=== PATIENT | female | born 1955 | race Caucasian/White ===

== ENCOUNTER → 2019-02-27 14:17 | Outpatient (CLI) | payer SELFPAY ==
[2016-04-30 18:56] VITALS: BMI 44.4
[2019-02-27 15:56] LABS: Hemoglobin A1c 5.2 % (4.2-6.3)
== END ==
PROVIDERS: Family Provider Physician Assistant; PCP Physician Assistant; Referring Provider Podiatrist Foot & Ankle Surgery; Visit Provider Podiatrist Foot & Ankle Surgery
DX: M79.2 Neuralgia and neuritis, unspecified (principal)
CPT/HCPCS: 36415; 83036

== ENCOUNTER → 2019-03-06 11:03 | Outpatient (CLI) | payer SELFPAY ==
[2016-04-30 18:56] VITALS: BMI 44.4
--- NOTE | 2019-03-06 11:11 | ART_ITS ---
Reason For Study: Circulatory system problems Procedure A bilateral lower extremity continuous wave Doppler with analog waveform analysis,segmental pressures,and ankle brachial indexes without exercise. Left Segmental Pressures Left brachial= 146mmHg. Left posterior tibial artery = 178mmHg. Left dorsalis pedis artery = 157mmHg. Left digit = 126 mmHg. Right Segmental Pressures Right brachial= 140mmHg. Right posterior tibial artery = 177mmHg. Right dorsalis pedis artery = 176mmHg. Right digit = 113 mmHg. Indices The right ankle brachial index by the posterior tibial artery is 1.21. The right ankle brachial index by the dorsalis pedis is 1.21. The right digital-brachial index is 0.77. The left ankle brachial index by the posterior tibial artery is 1.22. The left ankle brachial index by the dorsalis pedis is 1.08. The left digital-brachial index is 0.86. Interpretation Summary Triphasic Doppler waveforms are noted at ankle level bilaterally. Pulse-volume recordings appear satisfactory bilaterally. Resting ankle-brachial indices are normal bilaterally. Digital-brachial indices are normal bilaterally. There is no evidence of significant arterial occlusive disease in the lower extremities bilaterally. Ordering Physician: Zbigniew Muñoz Referring Physician: Zbigniew Muñoz Performed By: Dory Remy RDCS/RVT
== END ==
PROVIDERS: Referring Provider Podiatrist Foot & Ankle Surgery; Visit Provider Podiatrist Foot & Ankle Surgery
DX: R09.89 Other specified symptoms and signs involving the circulatory and respiratory systems (principal)
CPT/HCPCS: 93923

== ENCOUNTER 2020-12-29 13:15 | Outpatient (RCR) | payer SELFPAY ==
[2020-12-08 08:27] VITALS: BP 127/60; PULSE 68; RESP 16; TEMP 36.1
--- NOTE | 2020-12-08 11:54 | HP.PCM_ITS ---
History of Present Illness Date of Service: 12/08/20 Chief Complaint: Venous leg ulcer right lower extremity with cellulitis History of Wound: This is a 65-year-old female who presents to the wound healing center today with complaint of a nonhealing venous leg ulcer on her right lower extremity with also cellulitis. She has a past medical history significant for seizure disorder, and venous insufficiency. The patient states that her issues initially began in September 2020 where she developed cellulitis to her right lower extremity. Shortly afterwards she developed an open wound and was admitted twice to [facility] and was in the emergency department multiple times and placed on multiple rounds of antibiotics including doxycycline, Bactrim, clindamycin, Rocephin, and most recently completed a course of Keflex after being discharged from her 5-day hospital stay from 11/24 through 11/29. Unfortunately, hospital records are not available for review at this time. She does state that she had venous and arterial studies done and states that her arterial studies were within normal limits. I have personally reviewed and arterial studies done from 03/06/2019 which showed no arterial occlusive disease. However prior venous study showed venous insufficiency. She has currently been utilizing Neosporin over the open wound and covering with gauze. She states that the redness from the cellulitis to the right lower extremity has improved somewhat on the Keflex. Denies any other acute concerns. Past medical, family, and social history reviewed and not pertinent to the current visit and all other systems reviewed and negative with exception of those listed above. [facility] Medical History (Updated 12/08/20 @ 12:02 by Gordon Hall NP, [employer]) Cellulitis of right lower extremity Zander's disease Seizure disorder Venous insufficiency Venous ulcer of right leg Home Medications Aleve 220 mg PO PRN PRN 08/06/14 [History Last Taken Unknown] Echinacea 1 cap PO DAILY 08/06/14 [History Last Taken Unknown] Multivitamins,Therapeutic 1 tab PO DAILY 08/06/14 [History Last Taken Unknown] Valproic Acid 750 mg PO DAILY 08/06/14 [History Last Taken 04/30/16 08:30] solifenacin [Vesicare] 10 mg PO DAILY 04/18/16 [History Last Taken Unknown] Xarelto 10 mg PO DAILY@0600 #15 tablet 05/02/16 [Rx Last Taken Unknown] oxycodone [OxyContin] 10 mg PO BID #60 tablet 05/02/16 [Rx Last Taken Unknown] oxycodone-acetaminophen 1 tab PO Q4H PRN PRN #90 tablet 05/02/16 [Rx Last Taken Unknown] levothyroxine 50 mcg 12/08/20 [History Last Taken Unknown] Allergy/AdvReac Type Severity Reaction Status Date / Time No Known Allergies Allergy Verified 08/06/14 16:38 Social History Smoking Status: Never smoker ROS ROS Narrative Negative x10 systems with the exception of those listed above Vital Signs Vital Signs Vital Signs: 12/08/20 08:27 Temperature 97 F L Temperature Source Temporal Pulse Rate 68 Respiratory Rate 16 Blood Pressure 127/60 H Blood Pressure Mean 82 Blood Pressure Source Monitor Blood Pressure Position Sitting Blood Pressure Location Right Arm Physical Exam Const alert, oriented x3, no apparent distress, healthy appearing and well nourished General Appearance: cooperative Exam Limitations: no limitations HEENT normocephalic Head and Scalp: normal to inspection Mouth: oral and palatal mucosa normal Eyes General Eye: normal appearance of both eyes Resp normal respiratory effort, normal air movement and no use of accessory muscles Effort and Inspection: able to speak in complete sentences Auscultation: clear to auscultation bilaterally Cardio regular rate, regular rhythm, S1 normal heart sound, S2 normal heart sound, no murmurs and peripheral pulses 2+ throughout Palpation: normal PMI Rate: regular rate Heart Sounds: S1 normal and S2 normal GI normal to inspection, nondistended, normoactive bowel sounds, soft to palpation, non-tender and non-distended Palpation: soft Extremity normal to inspection and full ROM General Extremity: normal exam except as noted Skin Wound Narrative: Clustered venous leg ulcer present right lower extremity with s urrounding resolving cellulitis. There is still some erythema and warmth. After debridement, the wound bed is beefy red and granular. Bilaterally she does have chronic venous changes present with hemosiderin staining. Pulses are 2+ dorsal pedis bilaterally. Generalized edema bilateral lower extremities as well. Neuro oriented x3 and moves all extremities Sensorium / Orientation: awake, alert, oriented to person, oriented to place and oriented to time Psych mental status grossly normal, thought process normal and denies hallucinations Appearance: grossly normal Attitude: calm Activity / Motor Behavior: appropriate eye contact Speech: normal speech Thought Process: normal thought process Thought Content: normal thought content Attention / Concentration: attention grossly intact Insight: insight good Judgement: judgement good Debridement Note Debridement Note Post-Debridement Measurements and Additional Note: Post-Debridement Measurements/Treatment - Nurse 1 - General Ulcer Assessment Start: 12/08/20 08:19 Freq: Status: Active Protocol: SOY Activity Type Activity Date Activity User E-Sign Co-Sign Detail Recorded Client Recorded Date Recorded By Document 12/08/20 08:27 ML [id number] 12/08/20 08:38 ML 12/08/20 08:27 WC - Today's Visit Information Type of service Initial Visit Arrival Mode Ambulatory Transfer Assistance None Patient Identification Verified (Name & Yes ) Patient Requires Transmission-Based No Precautions Safety Precautions NA Vital Signs Temperature (97.8 F-99.1 F) 97 F L Temperature Source Temporal Pulse Rate (60-100) 68 Pulse Location Monitor Respiratory Rate (12-18) 16 Respiratory rate source Observation Blood Pressure (90/60-120/80) 127/60 H Blood Pressure Mean 82 Source Monitor Position Sitting Blood Pressure Location Right Arm History Since Last Visit- (Skip if this is Patient's initial visit) Have you changed medications since your No last visit? Had a fall/change in ADL's that may No increase risk of falls Signs or symptoms of abuse and/or No neglect since last visit Have you been in the hospital since your No last visit? Has dressing in place as prescribed No Has compression in place as prescribed N/A Has offloadiing in place as prescribed N/A Experienced any changes in pain level or No management Left Footwear Regular Shoe Right Footwear Regular Shoe Pain Scale: 0-10 Numeric Is Patient Pain Free? Yes [facility] Nurse 1 - General Ulcer Measurement Start: 12/08/20 08:19 Freq: Status: Active Protocol: Activity Type Activity Date Activity User E-Sign Co-Sign Detail Recorded Client Recorded Date Recorded By Document 12/08/20 08:27 ML [id number] 12/08/20 08:38 ML 12/08/20 08:27 Wound Center Nurse 1 right lower leg -Current Size (cm) - Length 2 -Current Size (cm) - Width 1.3 -Current Size (cm) - Depth 0.1 -Total Square Cm 2.6 -Exudate Amt Small -Exudate Type Serosanguineous -Wound Margin Distinct, Outline Attached -Granulation Amt Medium (34-66%) -Necrosis Amt Medium (34-66%) -Necrotic Tissue Type Adherent Slough -Texture (Mandy-wound Skin Appearance) Assessed -Moisture (Mandy-wound Skin Appearance) Assessed -Color (Mandy-wound Skin Appearance) Assessed -Temperature (Mandy-wound Skin No Abnormality Appearance) (Pt Warm) -Tenderness on Palpation (Mandy-wound No Skin Appearance) -Ulcer Cleansing Wound Cleanser -Foul Odor after Cleansing No -Anesthetic Used 4% Lidocaine Solution Right Calf (cm) 40 Right Ankle (cm) 27 WC - Nurse 3 - General Ulcer D/C NN Start: 12/08/20 08:19 Freq: Status: Active Protocol: Activity Type Activity Date Activity User E-Sign Co-Sign Detail Recorded Client Recorded Date Recorded By Document 12/08/20 09:32 ML [id number] 12/08/20 09:34 ML 12/08/20 09:32 Wound Care Nurse 3 right lower leg -Ulcer Cleansing Rinsed/ Irrigated with Saline -Foul Odor after Cleansing No -Primary Dressing Applied Silvercel -Other Dressing adaptic -Primary Dressing Covered/Secured with Dry Gauze -Silvercel 1 Right -Tubular Bandage Double Layer -Size of Tubigrip Used Size D -Size D ($) 2 WC - Visit Discharge Discharge Condition Stable Ambulatory Status Ambulatory Medication Reconcilliation completed & No provided to patient/care provider Clinical Summary of Care Provided Yes Additional Wound Wound debrided: Right VL U Laterality: Right Type of Debridement: Excisional debridement Anesthesia Used: 5% Lidocaine Gel Depth: Down to and including healthy tissue and in the subcutaneous layer Percentage of wound debrided: 100 Instrument Used: 5mm curette Tissue Removed: Slough and devitalized tissue Severity: Fat Layer Exposed Amount of bleeding with debridement: Mild Bleeding Controlled with: Pressure Patient tolerated procedure: Patient tolerated procedure well Charges/Coding Visit Charges Office Visits / Consults: [id number] OV L3 Est Procedures Integumentary [id number]: [id number] Carlene subq tissue 20 sq cm/< Assessment/Plan Assessment/Plan (1) Venous ulcer of right leg: CODE(S): I83.019 - Varicose veins of right lower extremity with ulcer of unspecified site; L97.919 - Non-pressure chronic ulcer of unspecified part of right lower leg with unspecified severity (2) Cellulitis of right lower extremity: CODE(S): L03.115 - Cellulitis of right lower limb (3) Venous insufficiency: CODE(S): I87.2 - Venous insufficiency (chronic) (peripheral) (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 Aquacel silver applied. At home wound-care instructions: Apply moistened Aquacel silver cover with Adaptic and gauze Change dressing once daily or more frequently as needed due to contamination. Wash wounds daily with antibacterial soap and water, rinse and dry thoroughly before each dressing change. Compression: Double layer Tubigrip's for compression Off-loading: The patient was instructed to avoid pressure and friction on the affected areas. Reposition every 2 hours at minimum. Avoid prolonged standing and/or dangling of legs. When seated, feet should be elevated at chest level. Frequent ambulation is encouraged. Diet: Patient encouraged to increase protein intake while taking caution to avoid high carbohydrate and/or sugar intake. Patient is a non-smoker Labs/cultures/imaging: Cultures ordered and collected today. Routine baseline lab work will be requested from prior hospitalization. Vascular studies requested from [facility]. Follow-up: Return to clinic in 1 week for re-evaluation. Return sooner or report to the emergency room should symptoms worsen, or new symptoms arise. Discussed with patient in detail that she should notify our office if she develops signs of worsening cellulitis. This note was generated with [employer] dictation software. It may contain incorrect words, spelling, and punctuation that were not noted in checking the note before signing. I have spent 35 minutes today reviewing labs, records, and history. Time includes coordinating care, interpretation of tests, and counseling the patient/family. This also includes time I spent with the patient for exam, treatment plan, and education as well as documenting clinical information in the electronic health record.
[2020-12-15 13:14] VITALS: BP 142/73; PULSE 81; TEMP 36.2
--- NOTE | 2020-12-15 15:23 | PCM.WC.PN ---
History of Present Illness Date of Service: 12/15/20 Chief Complaint: Venous leg ulcer right lower extremity with cellulitis History of Wound: This is a 65-year-old female who presents to the wound healing center today with complaint of a nonhealing venous leg ulcer on her right lower extremity with also cellulitis. She has a past medical history significant for seizure disorder, and venous insufficiency. The patient states that her issues initially began in September 2020 where she developed cellulitis to her right lower extremity. Shortly afterwards she developed an open wound and was admitted twice to [facility] and was in the emergency department multiple times and placed on multiple rounds of antibiotics including doxycycline, Bactrim, clindamycin, Rocephin, and most recently completed a course of Keflex after being discharged from her 5-day hospital stay from 11/24 through 11/29. Unfortunately, hospital records are not available for review at this time. She does state that she had venous and arterial studies done and states that her arterial studies were within normal limits. I have personally reviewed and arterial studies done from 03/06/2019 which showed no arterial occlusive disease. However prior venous study showed venous insufficiency. She has currently been utilizing Neosporin over the open wound and covering with gauze. She states that the redness from the cellulitis to the right lower extremity has improved somewhat on the Keflex. Denies any other acute concerns. Past medical, family, and social history reviewed and not pertinent to the current visit and all other systems reviewed and negative with exception of those listed above. Progress of Wound: Wound is improved, her cultures were reviewed and showed rare amount of MRSA which is susceptible to doxycycline. This was sent to the pharmacy for her to be placed on. She does note that the redness and warmth is stable and has not worsened. No new concerns. Objective Data Objective Data Vital Signs: Vital Signs Temp Pulse Resp BP 97.2 F L 81 16 142/73 H 12/15/20 13:14 12/15/20 13:14 12/08/20 08:27 12/15/20 13:14 Lab / Micro Data Micro: Microbiology 12/08/20 09:50 Wound - Left Foot Gram Stain - Final 12/08/20 09:50 Wound - Left Foot Wound Culture - Final Meth. resistant Staph. aureus 12/08/20 09:50 Wound - Left Foot Anaerobic Culture - Final No anaerobic bacteria isolated. Charges/Coding Procedures Integumentary [id number]: [id number] Carlene subq tissue 20 sq cm/< Physical Exam Const alert, oriented x3, no apparent distress, healthy appearing and well nourished General Appearance: cooperative Exam Limitations: no limitations HEENT normocephalic Head and Scalp: normal to inspection Mouth: oral and palatal mucosa normal Eyes General Eye: normal appearance of both eyes Resp normal respiratory effort, normal air movement and no use of accessory muscles Effort and Inspection: able to speak in complete sentences Auscultation: clear to auscultation bilaterally Cardio regular rate, regular rhythm, S1 normal heart sound, S2 normal heart sound, no murmurs and peripheral pulses 2+ throughout Palpation: normal PMI Rate: regular rate Heart Sounds: S1 normal and S2 normal GI normal to inspection, nondistended, normoactive bowel sounds, soft to palpation, non-tender and non-distended Palpation: soft Extremity normal to inspection and full ROM General Extremity: normal exam except as noted Skin Wound Narrative: Clustered venous leg ulcer present right lower extremity with surrounding resolving cellulitis. There is still some erythema and warmth. After debridement, the wound bed is beefy red and granular. Bilaterally she does have chronic venous changes present with hemosiderin staining. Pulses are 2+ dorsal pedis bilaterally. Generalized edema bilateral lower extremities as well. Neuro oriented x3 and moves all extremities Sensorium / Orientation: awake, alert, oriented to person, oriented to place and oriented to time Psych mental status grossly normal, thought process normal and denies hallucinations Appearance: grossly normal Attitude: calm Activity / Motor Behavior: appropriate eye contact Speech: normal speech Thought Process: normal thought process Thought Content: normal thought content Attention / Concentration: attention grossly intact Insight: insight good Judgement: judgement good Debridement Note Debridement Note Post-Debridement Measurements and Additional Note: Post-Debridement Measurements/Treatment NASREEN - Nurse 1 - General Ulcer Assessment Start: 12/08/20 08:19 Freq: Status: Active Protocol: SOY Activity Type Activity Date Activity User E-Sign Co-Sign Detail Recorded Client Recorded Date Recorded By Document 12/08/20 08:27 ML [id number] 12/08/20 08:38 ML Document 12/15/20 13:14 DL [id number] 12/15/20 13:17 DL 12/08/20 12/15/20 08:27 13:14 - Today's Visit Information Type of service Initial Visit Initial Visit Arrival Mode Ambulatory Ambulatory Transfer Assistance None Patient Identification Verified (Name & Yes Yes ) Patient Requires Transmission-Based No Precautions Safety Precautions NA Vital Signs Temperature (97.8 F-99.1 F) 97 F L 97.2 F L Temperature Source Temporal Temporal Pulse Rate (60-100) 68 81 Pulse Location Monitor Monitor Respiratory Rate (12-18) 16 Respiratory rate source Observation Blood Pressure (90/60-120/80) 127/60 H 142/73 H Blood Pressure Mean (mm Hg) 82 96 Source Monitor Monitor Position Sitting Semi-Fowlers Blood Pressure Location Right Arm Left Arm History Since Last Visit- (Skip if this is Patient's initial visit) Have you changed medications since your No No last visit? Any new allergies or adverse reactions No Had a fall/change in ADL's that may No No increase risk of falls Signs or symptoms of abuse and/or No No neglect since last visit Have you been in the hospital since your No No last visit? Has dressing in place as prescribed No Yes Has compression in place as prescribed N/A N/A Has offloadiing in place as prescribed N/A N/A Experienced any changes in pain level or No No management Left Footwear Regular Shoe Regular Shoe Right Footwear Regular Shoe Regular Shoe Pain Scale: 0-10 Numeric Is Patient Pain Free? Yes Yes - Nurse 1 - General Ulcer Measurement Start: 12/08/20 08:19 Freq: Status: Active Protocol: Activity Type Activity Date Activity User E-Sign Co-Sign Detail Recorded Client Recorded Date Recorded By Document 12/08/20 08:27 ML [id number] 12/08/20 08:38 ML Document 12/15/20 13:14 DL [email or web address] 12/15/20 13:17 DL 12/08/20 12/15/20 08:27 13:14 Wound Center Nurse 1 #2 RIGHT LOWER LEG -Current Size (cm) - Length 2 0.4 -Current Size (cm) - Width 1.3 1 -Current Size (cm) - Depth 0.1 0.1 -Total Square Cm 2.6 0.4 -Exudate Amt Small Small -Exudate Type Serosanguineous Serosanguineous -Wound Margin Distinct, Distinct, Outline Outline Attached Attached -Granulation Amt Medium (34-66%) Small (1-33%) -Granulation Quality [place] -Necrosis Amt Medium (34-66%) -Necrotic Tissue Type Adherent Slough -Texture (Mandy-wound Skin Appearance) Assessed Assessed, Localized Edema ,Scarring -Moisture (Mandy-wound Skin Appearance) Assessed No Abnormality, Assessed -Color (Mandy-wound Skin Appearance) Assessed No Abnormality, Assessed -Temperature (Mandy-wound Skin No Abnormality No Abnormality Appearance) (Pt Warm) (Pt Warm) -Tenderness on Palpation (Mandy-wound No No Skin Appearance) -Ulcer Cleansing Wound Cleanser Rinsed/ Irrigated with Saline -Foul Odor after Cleansing No No -Anesthetic Used 4% Lidocaine 5% Lidocaine Solution Gel Right Calf (cm) 40 46 Right Ankle (cm) 27 23.6 WC - Nurse 2 - General Ulcer CM Notes Start: 12/08/20 08:19 Freq: Status: Active Protocol: Activity Type Activity Date Activity User E-Sign Co-Sign Detail Recorded Client Recorded Date Recorded By Document 12/08/20 12:32 PL [id number] 12/08/20 12:34 PL 12/08/20 12:32 Wound Center Nurse 2 #2 RIGHT LOWER LEG -Time 09:15 -Correct Patient Yes -Correct Side, Site, Position Yes -Correct Procedure Yes -Procedure Performed Yes -Type of Procedure Debridement -Clinical Debridement Subcutaneous -Tissue Removed Subcutaneous -Post Debridement (cm) - Length 2 -Post Debridement (cm) - Width 1.3 -Post Debridement (cm) - Depth 0.1 -Total Square (Post) (cm) 2.6 -Area of Debridement (cm) - Length 2 -Area of Debridement (cm) - Width 1.3 -Total Square (Area) (cm) 2.6 -Tunneling No -Undermining/Tunneling No -Circular Undermining No -Wound/Ulcer Outcome Not Healed -Ulcer Cleansing Rinsed/ Irrigated with Saline -Foul Odor after Cleansing No -Bioengineered Tissue No -Debridement - Subq, 1st 20sq cm Yes Pain Scale: 0-10 Numeric Is Patient Pain Free? Yes WC - Nurse 3 - General Ulcer D/C NN Start: 12/08/20 08:19 Freq: Status: Active Protocol: Activity Type Activity Date Activity User E-Sign Co-Sign Detail Recorded Client Recorded Date Recorded By Document 12/08/20 09:32 ML [id number] 12/08/20 09:34 ML Document 12/15/20 13:40 DL [id number] 12/15/20 13:40 DL 12/08/20 12/15/20 09:32 13:40 Wound Care Nurse 3 #2 RIGHT LOWER LEG -Ulcer Cleansing Rinsed/ Irrigated with Saline -Foul Odor after Cleansing No -Primary Dressing Applied Silvercel Silvercel -Other Dressing adaptic -Primary Dressing Covered/Secured with Dry Gauze Dry Gauze, Secured with Tape -Silvercel 1 1 Right -Tubular Bandage Double Layer Double Layer -Size of Tubigrip Used Size D Size F -Size D ($) 2 -Size F ($) 2 Pain Scale: 0-10 Numeric Is Patient Pain Free? Yes WC - Visit Discharge Discharge Condition Stable Stable Ambulatory Status Ambulatory Ambulatory Transportation Private Auto Medication Reconcilliation completed & No provided to patient/care provider Clinical Summary of Care Provided Yes Additional Wound Wound debrided: Right lower extremity ulcer with cellulitis Laterality: Right Type of Debridement: Excisional debridement Anesthesia Used: 5% Lidocaine Gel Depth: Down to and including healthy tissue and in the subcutaneous layer Percentage of wound debrided: 100 Instrument Used: 5mm curette Tissue Removed: Slough and devitalized tissue Severity: Fat Layer Exposed Amount of bleeding with debridement: Mild Bleeding Controlled with: Pressure Patient tolerated procedure: Patient tolerated procedure well Assessment/Plan Assessment/Plan (1) Venous ulcer of right leg: CODE(S): I83.019 - Varicose veins of right lower extremity with ulcer of unspecified site; L97.919 - Non-pressure chronic ulcer of unspecified part of right lower leg with unspecified severity (2) Cellulitis of right lower extremity: CODE(S): L03.115 - Cellulitis of right lower limb (3) Venous insufficiency: CODE(S): I87.2 - Venous insufficiency (chronic) (peripheral) (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 Aquacel silver applied. At home wound-care instructions: Apply moistened Aquacel silver cover with Adaptic and gauze Change dressing once daily or more frequently as needed due to contamination. Wash wounds daily with antibacterial soap and water, rinse and dry thoroughly before each dressing change. Compression: Double layer Tubigrip's for compression Off-loading: The patient was instructed to avoid pressure and friction on the affected areas. Reposition every 2 hours at minimum. Avoid prolonged standing and/or dangling of legs. When seated, feet should be elevated at chest level. Frequent ambulation is encouraged. Diet: Patient encouraged to increase protein intake while taking caution to avoid high carbohydrate and/or sugar intake. Patient is a non-smoker Labs/cultures/imaging: Cultures ordered and collected prior and showed rare MRSA, patient started on doxycycline. Routine baseline lab work will be requested from prior hospitalization. Vascular studies requested from [place]. Follow-up: Return to clinic in 1 week for re-evaluation. Return sooner or report to the emergency room should symptoms worsen, or new symptoms arise. Discussed with patient in detail that she should notify our office if she develops signs of worsening cellulitis. This note was generated with [employer] dictation software. It may contain incorrect words, spelling, and punctuation that were not noted in checking the note before signing. I have spent 35 minutes today reviewing labs, records, and history. Time includes coordinating care, interpretation of tests, and counseling the patient/family. This also includes time I spent with the patient for exam, treatment plan, and education as well as documenting clinical information in the electronic health record.
[2020-12-22 14:24] VITALS: BP 136/96; PULSE 79; RESP 16; TEMP 36.2
--- NOTE | 2020-12-22 16:58 | PCM.WC.PN ---
History of Present Illness Date of Service: 12/22/20 Chief Complaint: Venous leg ulcer right lower extremity with cellulitis History of Wound: This is a 65-year-old female who presents to the wound healing center today with complaint of a nonhealing venous leg ulcer on her right lower extremity with also cellulitis. She has a past medical history significant for seizure disorder, and venous insufficiency. The patient states that her issues initially began in September 2020 where she developed cellulitis to her right lower extremity. Shortly afterwards she developed an open wound and was admitted twice to [facility] and was in the emergency department multiple times and placed on multiple rounds of antibiotics including doxycycline, Bactrim, clindamycin, Rocephin, and most recently completed a course of Keflex after being discharged from her 5-day hospital stay from 11/24 through 11/29. Unfortunately, hospital records are not available for review at this time. She does state that she had venous and arterial studies done and states that her arterial studies were within normal limits. I have personally reviewed and arterial studies done from 03/06/2019 which showed no arterial occlusive disease. However prior venous study showed venous insufficiency. She has currently been utilizing Neosporin over the open wound and covering with gauze. She states that the redness from the cellulitis to the right lower extremity has improved somewhat on the Keflex. Denies any other acute concerns. Past medical, family, and social history reviewed and not pertinent to the current visit and all other systems reviewed and negative with exception of those listed above. Progress of Wound: Wound is healed, her cultures were reviewed and showed rare amount of MRSA which is susceptible to doxycycline which she is tolerating she does note that the redness and warmth is stable and has not worsened. No new concerns. Objective Data Objective Data Vital Signs: Vital Signs Temp Pulse Resp BP 97.1 F L 79 16 136/96 H 12/22/20 14:24 12/22/20 14:24 12/22/20 14:24 12/22/20 14:24 Lab / Micro Data Micro: Microbiology 12/08/20 09:50 Wound - Left Foot Gram Stain - Final 12/08/20 09:50 Wound - Left Foot Wound Culture - Final Meth. resistant Staph. aureus 12/08/20 09:50 Wound - Left Foot Anaerobic Culture - Final No anaerobic bacteria isolated. Charges/Coding Visit Charges Office Visits / Consults: [id number] OV L3 Est Physical Exam Const alert, oriented x3, no apparent distress, healthy appearing and well nourished General Appearance: cooperative Exam Limitations: no limitations HEENT normocephalic Head and Scalp: normal to inspection Mouth: oral and palatal mucosa normal Eyes General Eye: normal appearance of both eyes Resp normal respiratory effort, normal air movement and no use of accessory muscles Effort and Inspection: able to speak in complete sentences Auscultation: clear to auscultation bilaterally Cardio regular rate, regular rhythm, S1 normal heart sound, S2 normal heart sound, no murmurs and peripheral pulses 2+ throughout Palpation: normal PMI Rate: regular rate Heart Sounds: S1 normal and S2 normal GI normal to inspection, nondistended, normoactive bowel sounds, soft to palpation, non-tender and non-distended Palpation: soft Extremity normal to inspection and full ROM General Extremity: normal exam except as noted Skin Wound Narrative: Clustered venous leg ulcer to right lower extremity is healed with surrounding resolving cellulitis. There is still some erythema and warmth. Bilaterally she does have chronic venous changes present with hemosiderin staining. Pulses are 2+ dorsal pedis bilaterally. Generalized edema bilateral lower extremities as well. Neuro oriented x3 and moves all extremities Sensorium / Orientation: awake, alert, oriented to person, oriented to place and oriented to time Psych mental status grossly normal, thought process normal and denies hallucinations Appearance: grossly normal Attitude: calm Activity / Motor Behavior: appropriate eye contact Speech: normal speech Thought Process: normal thought process Thought Content: normal thought content Attention / Concentration: attention grossly intact Insight: insight good Judgement: judgement good Debridement Note Debridement Note Post-Debridement Measurements and Additional Note: Post-Debridement Measurements/Treatment - Nurse 1 - General Ulcer Assessment Start: 12/08/20 08:19 Freq: Status: Active Protocol: SOY Activity Type Activity Date Activity User E-Sign Co-Sign Detail Recorded Client Recorded Date Recorded By Document 12/08/20 08:27 ML [id number] 12/08/20 08:38 ML Document 12/15/20 13:14 DL [id number] 12/15/20 13:17 DL Document 12/22/20 14:24 ML [id number] 12/22/20 14:32 ML 12/08/20 12/15/20 12/22/20 08:27 13:14 14:24 - Today's Visit Information Type of service Initial Visit Initial Visit Follow-up Visit (Physician/BOTTLE [facility]OWER ) Arrival Mode Ambulatory Ambulatory Ambulatory Transfer Assistance None None Patient Identification Verified (Name & Yes Yes Yes ) Patient Requires Transmission-Based No No Precautions Safety Precautions NA NA Vital Signs Temperature (97.8 F-99.1 F) 97 F L 97.2 F L 97.1 F L Temperature Source Temporal Temporal Temporal Pulse Rate (60-100) 68 81 79 Pulse Location Monitor Monitor Monitor Respiratory Rate (12-18) 16 16 Respiratory rate source Observation Observation Blood Pressure (90/60-120/80) 127/60 H 142/73 H 136/96 H Blood Pressure Mean (mm Hg) 82 96 109 Source Monitor Monitor Monitor Position Sitting Semi-Fowlers Sitting Blood Pressure Location Right Arm Left Arm Left Arm History Since Last Visit- (Skip if this is Patient's initial visit) Have you changed medications since your No No No last visit? Any new allergies or adverse reactions No No Had a fall/change in ADL's that may No No No increase risk of falls Signs or symptoms of abuse and/or No No No neglect since last visit Have you been in the hospital since your No No No last visit? Has dressing in place as prescribed No Yes Yes Has compression in place as prescribed N/A N/A Yes Has offloadiing in place as prescribed N/A N/A N/A Experienced any changes in pain level or No No No management Left Footwear Regular Shoe Regular Shoe Regular Shoe Right Footwear Regular Shoe Regular Shoe Regular Shoe Pain Scale: 0-10 Numeric Is Patient Pain Free? Yes Yes Yes - Nurse 1 - General Ulcer Measurement Start: 12/08/20 08:19 Freq: Status: Active Protocol: Activity Type Activity Date Activity User E-Sign Co-Sign Detail Recorded Client Recorded Date Recorded By Document 12/08/20 08:27 ML [id number] 12/08/20 08:38 ML Document 12/15/20 13:14 DL [id number] 12/15/20 13:17 DL Document 12/22/20 14:24 ML [id number] 12/22/20 14:32 ML 12/08/20 12/15/20 12/22/20 08:27 13:14 14:24 Wound Center Nurse 1 #2 RIGHT LOWER LEG -Current Size (cm) - Length 2 0.4 0.1 -Current Size (cm) - Width 1.3 1 0.1 -Current Size (cm) - Depth 0.1 0.1 0.1 -Total Square Cm 2.6 0.4 0.01 -Exudate Amt Small Small Small -Exudate Type Serosanguineous Serosanguineous Serosanguineous -Wound Margin Distinct, Distinct, Distinct, Outline Outline Outline Attached Attached Attached -Granulation Amt Medium (34-66%) Small (1-33%) Large (67-100%) -Granulation Quality [place] Red -Slough/Fibrin No -Necrosis Amt Medium (34-66%) -Necrotic Tissue Type Adherent Slough -Texture (Mandy-wound Skin Appearance) Assessed Assessed, Assessed Localized Edema ,Scarring -Moisture (Mandy-wound Skin Appearance) Assessed No Abnormality, Assessed Assessed -Color (Mandy-wound Skin Appearance) Assessed No Abnormality, Assessed Assessed -Temperature (Mandy-wound Skin No Abnormality No Abnormality No Abnormality Appearance) (Pt Warm) (Pt Warm) (Pt Warm) -Tenderness on Palpation (Mandy-wound No No No Skin Appearance) -Ulcer Cleansing Wound Cleanser Rinsed/ Rinsed/ Irrigated with Irrigated with Saline Saline -Foul Odor after Cleansing No No No -Anesthetic Used 4% Lidocaine 5% Lidocaine 4% Lidocaine Solution Gel Solution Right Calf (cm) 40 46 Right Ankle (cm) 27 23.6 WC - Nurse 2 - General Ulcer CM Notes Start: 12/08/20 08:19 Freq: Status: Active Protocol: Activity Type Activity Date Activity User E-Sign Co-Sign Detail Recorded Client Recorded Date Recorded By Document 12/08/20 12:32 PL [id number] 12/08/20 12:34 PL Document 12/15/20 15:22 PL [id number] 12/15/20 15:24 PL Document 12/22/20 14:39 MW [id number] 12/22/20 14:45 MW 12/08/20 12/15/20 12/22/20 12:32 15:22 14:39 Wound Center Nurse 2 #2 RIGHT LOWER LEG -Time 09:15 13:20 14:39 -Correct Patient Yes Yes Yes -Correct Side, Site, Position Yes Yes Yes -Correct Procedure Yes Yes Yes -Procedure Performed Yes Yes No -Type of Procedure Debridement Debridement -Clinical Debridement Subcutaneous Subcutaneous -Tissue Removed Subcutaneous Subcutaneous -Post Debridement (cm) - Length 2 1.2 0 -Post Debridement (cm) - Width 1.3 0.8 0 -Post Debridement (cm) - Depth 0.1 0.1 0 -Total Square (Post) (cm) 2.6 0.96 0 -Area of Debridement (cm) - Length 2 1.2 -Area of Debridement (cm) - Width 1.3 0.8 -Total Square (Area) (cm) 2.6 0.96 -Tunneling No No -Undermining/Tunneling No No -Circular Undermining No No -Wound/Ulcer Outcome Not Healed Not Healed Healed- Epithelialized -Ulcer Cleansing Rinsed/ Rinsed/ Irrigated with Irrigated with Saline Saline -Foul Odor after Cleansing No No -Bioengineered Tissue No No -Bleeding Controlled with Pressure -Treatment Response Procedure Tolerated Well -Debridement - Subq, 1st 20sq cm Yes Yes Pain Scale: 0-10 Numeric Is Patient Pain Free? Yes Yes Yes WC - Nurse 3 - General Ulcer D/C NN Start: 12/08/20 08:19 Freq: Status: Active Protocol: Activity Type Activity Date Activity User E-Sign Co-Sign Detail Recorded Client Recorded Date Recorded By Document 12/08/20 09:32 ML [id number] 12/08/20 09:34 ML Document 12/15/20 13:40 DL [id number] 12/15/20 13:40 DL Document 12/22/20 14:50 ML [id number] 12/22/20 14:51 ML 12/08/20 12/15/20 12/22/20 09:32 13:40 14:50 Wound Care Nurse 3 #2 RIGHT LOWER LEG -Ulcer Cleansing Rinsed/ Irrigated with Saline -Foul Odor after Cleansing No -Primary Dressing Applied Silvercel Silvercel -Other Dressing adaptic -Primary Dressing Covered/Secured with Dry Gauze Dry Gauze, Secured with Tape -Silvercel 1 1 Right -Multi-Layered Wrap Application Unna Boot - Right ($) -Tubular Bandage Double Layer Double Layer -Size of Tubigrip Used Size D Size F -Size D ($) 2 -Size F ($) 2 Pain Scale: 0-10 Numeric Is Patient Pain Free? Yes WC - Visit Discharge Discharge Condition Stable Stable Ambulatory Status Ambulatory Ambulatory Transportation Private Auto Medication Reconcilliation completed & No provided to patient/care provider Clinical Summary of Care Provided Yes Assessment/Plan Assessment/Plan (1) Venous ulcer of right leg: CODE(S): I83.019 - Varicose veins of right lower extremity with ulcer of unspecified site; L97.919 - Non-pressure chronic ulcer of unspecified part of right lower leg with unspecified severity (2) Cellulitis of right lower extremity: CODE(S): L03.115 - Cellulitis of right lower limb (3) Venous insufficiency: CODE(S): I87.2 - Venous insufficiency (chronic) (peripheral) (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 At home wound-care instructions: Apply UNNA boots bilaterally for compression, cellulitis is almost entirely resolved. Wash wounds daily with antibacterial soap and water, rinse and dry thoroughly before each dressing change. Compression: Unna boots for compression Off-loading: The patient was instructed to avoid pressure and friction on the affected areas. Reposition every 2 hours at minimum. Avoid prolonged standing and/or dangling of legs. When seated, feet should be elevated at chest level. Frequent ambulation is encouraged. Diet: Patient encouraged to increase protein intake while taking caution to avoid high carbohydrate and/or sugar intake. Patient is a non-smoker Labs/cultures/imaging: Cultures ordered and collected prior and showed rare MRSA, patient to continue her doxycycline. Routine baseline lab work will be requested from prior hospitalization. Vascular studies requested from [place]. Follow-up: Return to clinic in 1 week for re-evaluation. Return sooner or report to the emergency room should symptoms worsen, or new symptoms arise. Discussed with patient in detail that she should notify our office if she develops signs of worsening cellulitis. This note was generated with Copyright Agent dictation software. It may contain incorrect words, spelling, and punctuation that were not noted in checking the note before signing. I have spent 35 minutes today reviewing labs, records, and history. Time includes coordinating care, interpretation of tests, and counseling the patient/family. This also includes time I spent with the patient for exam, treatment plan, and education as well as documenting clinical information in the electronic health record.
[2020-12-29 13:11] VITALS: BP 143/76; PULSE 81; RESP 16; TEMP 36.5
--- NOTE | 2020-12-29 17:12 | PCM.WC.PN ---
History of Present Illness Date of Service: 12/29/20 Chief Complaint: Venous leg ulcer right lower extremity with cellulitis History of Wound: This is a 65-year-old female who presents to the wound healing center today with complaint of a nonhealing venous leg ulcer on her right lower extremity with also cellulitis. She has a past medical history significant for seizure disorder, and venous insufficiency. The patient states that her issues initially began in September 2020 where she developed cellulitis to her right lower extremity. Shortly afterwards she developed an open wound and was admitted twice to [facility] and was in the emergency department multiple times and placed on multiple rounds of antibiotics including doxycycline, Bactrim, clindamycin, Rocephin, and most recently completed a course of Keflex after being discharged from her 5-day hospital stay from 11/24 through 11/29. Unfortunately, hospital records are not available for review at this time. She does state that she had venous and arterial studies done and states that her arterial studies were within normal limits. I have personally reviewed and arterial studies done from 03/06/2019 which showed no arterial occlusive disease. However prior venous study showed venous insufficiency. She has currently been utilizing Neosporin over the open wound and covering with gauze. She states that the redness from the cellulitis to the right lower extremity has improved somewhat on the Keflex. Denies any other acute concerns. Past medical, family, and social history reviewed and not pertinent to the current visit and all other systems reviewed and negative with exception of those listed above. Progress of Wound: Wound is healed, cellulitis has resolved and there is now only chronic venous changes present, patient tolerated the Unna boot well, will do 1 more week of Unna boot and patient to pick out hand new compression stockings. No new concerns. Objective Data Objective Data Vital Signs: Vital Signs Temp Pulse Resp BP 97.7 F L 81 16 143/76 H 12/29/20 13:11 12/29/20 13:11 12/29/20 13:11 12/29/20 13:11 Lab / Micro Data Micro: Microbiology 12/08/20 09:50 Wound - Left Foot Gram Stain - Final 12/08/20 09:50 Wound - Left Foot Wound Culture - Final Meth. resistant Staph. aureus 12/08/20 09:50 Wound - Left Foot Anaerobic Culture - Final No anaerobic bacteria isolated. Charges/Coding Visit Charges Office Visits / Consults: 17260 OV L2 Est Physical Exam Const alert, oriented x3, no apparent distress, healthy appearing and well nourished General Appearance: cooperative Exam Limitations: no limitations HEENT normocephalic Head and Scalp: normal to inspection Mouth: oral and palatal mucosa normal Eyes General Eye: normal appearance of both eyes Resp normal respiratory effort, normal air movement and no use of accessory muscles Effort and Inspection: able to speak in complete sentences Auscultation: clear to auscultation bilaterally Cardio regular rate, regular rhythm, S1 normal heart sound, S2 normal heart sound, no murmurs and peripheral pulses 2+ throughout Palpation: normal PMI Rate: regular rate Heart Sounds: S1 normal and S2 normal GI normal to inspection, nondistended, normoactive bowel sounds, soft to palpation, non-tender and non-distended Palpation: soft Extremity normal to inspection and full ROM General Extremity: normal exam except as noted Skin Wound Narrative: Clustered venous leg ulcer to right lower extremity is healed with surrounding resolved cellulitis. Bilaterally she does have chronic venous changes present with hemosiderin staining. Pulses are 2+ dorsal pedis bilaterally. Generalized edema bilateral lower extremities as well. Neuro oriented x3 and moves all extremities Sensorium / Orientation: awake, alert, oriented to person, oriented to place and oriented to time Psych mental status grossly normal, thought process normal and denies hallucinations Appearance: grossly normal Attitude: calm Activity / Motor Behavior: appropriate eye contact Speech: normal speech Thought Process: normal thought process Thought Content: normal thought content Attention / Concentration: attention grossly intact Insight: insight good Judgement: judgement good Debridement Note Debridement Note Post-Debridement Measurements and Additional Note: Post-Debridement Measurements/Treatment - Nurse 1 - General Ulcer Assessment Start: 12/08/20 08:19 Freq: Status: Active Protocol: [email or web address].ELSY Activity Type Activity Date Activity User E-Sign Co-Sign Detail Recorded Client Recorded Date Recorded By Document 12/08/20 08:27 ML [id number] 12/08/20 08:38 ML Document 12/15/20 13:14 DL [id number] 12/15/20 13:17 DL Document 12/22/20 14:24 ML [id number] 12/22/20 14:32 ML Document 12/29/20 13:11 AK [id number] 12/29/20 13:13 AK 12/08/20 12/15/20 12/22/20 08:27 13:14 14:24 [facility] Today's Visit Information Type of service Initial Visit Initial Visit Follow-up Visit (Physician/PROGRAMMING DIRECTOR ) Arrival Mode Ambulatory Ambulatory Ambulatory Transfer Assistance None None Patient Identification Verified (Name & Yes Yes Yes ) Patient Requires Transmission-Based No No Precautions Safety Precautions NA NA Vital Signs Temperature (97.8 F-99.1 F) 97 F L 97.2 F L 97.1 F L Temperature Source Temporal Temporal Temporal Pulse Rate (60-100) 68 81 79 Pulse Location Monitor Monitor Monitor Respiratory Rate (12-18) 16 16 Respiratory rate source Observation Observation Blood Pressure (90/60-120/80) 127/60 H 142/73 H 136/96 H Blood Pressure Mean (mm Hg) 82 96 109 Source Monitor Monitor Monitor Position Sitting Semi-Fowlers Sitting Blood Pressure Location Right Arm Left Arm Left Arm History Since Last Visit- (Skip if this is Patient's initial visit) Have you changed medications since your No No No last visit? Any new allergies or adverse reactions No No Had a fall/change in ADL's that may No No No increase risk of falls Signs or symptoms of abuse and/or No No No neglect since last visit Have you been in the hospital since your No No No last visit? Has dressing in place as prescribed No Yes Yes Has compression in place as prescribed N/A N/A Yes Has offloadiing in place as prescribed N/A N/A N/A Experienced any changes in pain level or No No No management Left Footwear Regular Shoe Regular Shoe Regular Shoe Right Footwear Regular Shoe Regular Shoe Regular Shoe Pain Scale: 0-10 Numeric Is Patient Pain Free? Yes Yes Yes 12/29/20 13:11 [facility] Today's Visit Information Type of service Follow-up Visit (Physician/PROGRAMMING DIRECTOR ) Arrival Mode Ambulatory Transfer Assistance Patient Identification Verified (Name & Yes ) Patient Requires Transmission-Based No Precautions Safety Precautions NA Vital Signs Temperature (97.8 F-99.1 F) 97.7 F L Temperature Source Temporal Pulse Rate (60-100) 81 Pulse Location Monitor Respiratory Rate (12-18) 16 Respiratory rate source Blood Pressure (90/60-120/80) 143/76 H Blood Pressure Mean (mm Hg) 98 Source Monitor Position Sitting Blood Pressure Location Right Arm History Since Last Visit- (Skip if this is Patient's initial visit) Have you changed medications since your No last visit? Any new allergies or adverse reactions No Had a fall/change in ADL's that may No increase risk of falls Signs or symptoms of abuse and/or No neglect since last visit Have you been in the hospital since your No last visit? Has dressing in place as prescribed Yes Has compression in place as prescribed Yes Has offloadiing in place as prescribed N/A Experienced any changes in pain level or No management Left Footwear Regular Shoe Right Footwear Regular Shoe Pain Scale: 0-10 Numeric Is Patient Pain Free? Yes WC - Nurse 1 - General Ulcer Measurement Start: 12/08/20 08:19 Freq: Status: Active Protocol: Activity Type Activity Date Activity User E-Sign Co-Sign Detail Recorded Client Recorded Date Recorded By Document 12/08/20 08:27 ML [id number] 12/08/20 08:38 ML Document 12/15/20 13:14 DL [id number] 12/15/20 13:17 DL Document 12/22/20 14:24 ML [id number] 12/22/20 14:32 ML Document 12/29/20 13:11 AK [id number] 12/29/20 13:13 AK 12/08/20 12/15/20 12/22/20 08:27 13:14 14:24 Wound Center Nurse 1 #2 RIGHT LOWER LEG -Current Size (cm) - Length 2 0.4 0.1 -Current Size (cm) - Width 1.3 1 0.1 -Current Size (cm) - Depth 0.1 0.1 0.1 -Total Square Cm 2.6 0.4 0.01 -Exudate Amt Small Small Small -Exudate Type Serosanguineous Serosanguineous Serosanguineous -Wound Margin Distinct, Distinct, Distinct, Outline Outline Outline Attached Attached Attached -Granulation Amt Medium (34-66%) Small (1-33%) Large (67-100%) -Granulation Quality [place] Red -Slough/Fibrin No -Necrosis Amt Medium (34-66%) -Necrotic Tissue Type Adherent Slough -Texture (Mandy-wound Skin Appearance) Assessed Assessed, Assessed Localized Edema ,Scarring -Moisture (Mandy-wound Skin Appearance) Assessed No Abnormality, Assessed Assessed -Color (Mandy-wound Skin Appearance) Assessed No Abnormality, Assessed Assessed -Temperature (Mandy-wound Skin No Abnormality No Abnormality No Abnormality Appearance) (Pt Warm) (Pt Warm) (Pt Warm) -Tenderness on Palpation (Mandy-wound No No No Skin Appearance) -Ulcer Cleansing Wound Cleanser Rinsed/ Rinsed/ Irrigated with Irrigated with Saline Saline -Foul Odor after Cleansing No No No -Anesthetic Used 4% Lidocaine 5% Lidocaine 4% Lidocaine Solution Gel Solution Right Calf (cm) 40 46 Right Ankle (cm) 27 23.6 12/29/20 13:11 Wound Center Nurse 1 #2 RIGHT LOWER LEG -Current Size (cm) - Length -Current Size (cm) - Width -Current Size (cm) - Depth -Total Square Cm -Exudate Amt -Exudate Type -Wound Margin -Granulation Amt -Granulation Quality -Slough/Fibrin -Necrosis Amt -Necrotic Tissue Type -Texture (Mandy-wound Skin Appearance) -Moisture (Mandy-wound Skin Appearance) -Color (Mandy-wound Skin Appearance) -Temperature (Mandy-wound Skin Appearance) -Tenderness on Palpation (Mandy-wound Skin Appearance) -Ulcer Cleansing -Foul Odor after Cleansing -Anesthetic Used Right Calf (cm) 44.3 Right Ankle (cm) 27 - Nurse 2 - General Ulcer CM Notes Start: 12/08/20 08:19 Freq: Status: Active Protocol: Activity Type Activity Date Activity User E-Sign Co-Sign Detail Recorded Client Recorded Date Recorded By Document 12/08/20 12:32 PL [id number] 12/08/20 12:34 PL Document 12/15/20 15:22 PL [id number] 12/15/20 15:24 PL Document 12/22/20 14:39 MW [id number] 12/22/20 14:45 MW Document 12/29/20 13:34 MW [id number] 12/29/20 13:35 MW 12/08/20 12/15/20 12/22/20 12:32 15:22 14:39 Wound Center Nurse 2 #2 RIGHT LOWER LEG -Time 09:15 13:20 14:39 -Correct Patient Yes Yes Yes -Correct Side, Site, Position Yes Yes Yes -Correct Procedure Yes Yes Yes -Procedure Performed Yes Yes No -Type of Procedure Debridement Debridement -Clinical Debridement Subcutaneous Subcutaneous -Tissue Removed Subcutaneous Subcutaneous -Post Debridement (cm) - Length 2 1.2 0 -Post Debridement (cm) - Width 1.3 0.8 0 -Post Debridement (cm) - Depth 0.1 0.1 0 -Total Square (Post) (cm) 2.6 0.96 0 -Area of Debridement (cm) - Length 2 1.2 -Area of Debridement (cm) - Width 1.3 0.8 -Total Square (Area) (cm) 2.6 0.96 -Tunneling No No -Undermining/Tunneling No No -Circular Undermining No No -Wound/Ulcer Outcome Not Healed Not Healed Healed- Epithelialized -Ulcer Cleansing Rinsed/ Rinsed/ Irrigated with Irrigated with Saline Saline -Foul Odor after Cleansing No No -Bioengineered Tissue No No -Bleeding Controlled with Pressure -Treatment Response Procedure Tolerated Well -Debridement - Subq, 1st 20sq cm Yes Yes Pain Scale: 0-10 Numeric Is Patient Pain Free? Yes Yes Yes 12/29/20 13:34 Wound Center Nurse 2 #2 RIGHT LOWER LEG -Time -Correct Patient -Correct Side, Site, Position -Correct Procedure -Procedure Performed -Type of Procedure -Clinical Debridement -Tissue Removed -Post Debridement (cm) - Length -Post Debridement (cm) - Width -Post Debridement (cm) - Depth -Total Square (Post) (cm) -Area of Debridement (cm) - Length -Area of Debridement (cm) - Width -Total Square (Area) (cm) -Tunneling -Undermining/Tunneling -Circular Undermining -Wound/Ulcer Outcome -Ulcer Cleansing -Foul Odor after Cleansing -Bioengineered Tissue -Bleeding Controlled with -Treatment Response -Debridement - Subq, 1st 20sq cm Pain Scale: 0-10 Numeric Is Patient Pain Free? Yes - Nurse 3 - General Ulcer D/C NN Start: 12/08/20 08:19 Freq: Status: Active Protocol: Activity Type Activity Date Activity User E-Sign Co-Sign Detail Recorded Client Recorded Date Recorded By Document 12/08/20 09:32 ML [id number] 12/08/20 09:34 ML Document 12/15/20 13:40 DL [id number] 12/15/20 13:40 DL Document 12/22/20 14:50 ML [id number] 12/22/20 14:51 ML Document 12/29/20 13:42 AK [id number] 12/29/20 13:47 AK 12/08/20 12/15/20 12/22/20 09:32 13:40 14:50 Wound Care Nurse 3 #2 RIGHT LOWER LEG -Ulcer Cleansing Rinsed/ Irrigated with Saline -Foul Odor after Cleansing No -Primary Dressing Applied Silvercel Silvercel -Other Dressing adaptic -Primary Dressing Covered/Secured with Dry Gauze Dry Gauze, Secured with Tape -Silvercel 1 1 Right -Multi-Layered Wrap Application Unna Boot - Right ($) -Tubular Bandage Double Layer Double Layer -Size of Tubigrip Used Size D Size F -Size D ($) 2 -Size F ($) 2 Pain Scale: 0-10 Numeric Is Patient Pain Free? Yes WC - Visit Discharge Discharge Condition Stable Stable Ambulatory Status [facility]ulatory [facility] Medication Reconcilliation completed & No provided to patient/care provider Clinical Summary of Care Provided Yes 12/29/20 13:42 Wound Care Nurse 3 #2 RIGHT LOWER LEG -Ulcer Cleansing -Foul Odor after Cleansing -Primary Dressing Applied -Other Dressing -Primary Dressing Covered/Secured with -Silvercel Right -Multi-Layered Wrap Application Unna Boot - Right ($) -Tubular Bandage -Size of Tubigrip Used -Size D ($) -Size F ($) Pain Scale: 0-10 Numeric Is Patient Pain Free? WC - Visit Discharge Discharge Condition Ambulatory Status Transportation Medication Reconcilliation completed & provided to patient/care provider Clinical Summary of Care Provided Assessment/Plan Assessment/Plan (1) Venous ulcer of right leg: CODE(S): I83.019 - Varicose veins of right lower extremity with ulcer of unspecified site; L97.919 - Non-pressure chronic ulcer of unspecified part of right lower leg with unspecified severity (2) Cellulitis of right lower extremity: CODE(S): L03.115 - Cellulitis of right lower limb (3) Venous insufficiency: CODE(S): I87.2 - Venous insufficiency (chronic) (peripheral) (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 At home wound-care instructions: Apply UNNA boots bilaterally for compression, cellulitis is entirely resolved. Compression: Unna boots for compression Off-loading: The patient was instructed to avoid pressure and friction on the affected areas. Reposition every 2 hours at minimum. Avoid prolonged standing and/or dangling of legs. When seated, feet should be elevated at chest level. Frequent ambulation is encouraged. Diet: Patient encouraged to increase protein intake while taking caution to avoid high carbohydrate and/or sugar intake. Patient is a non-smoker Labs/cultures/imaging: Cultures ordered and collected prior and showed rare MRSA, patient to continue her doxycycline. Routine baseline lab work will be requested from prior hospitalization. Vascular studies requested from [place]. Follow-up: Return to clinic in 1 week for re-evaluation. Return sooner or report to the emergency room should symptoms worsen, or new symptoms arise. Discussed with patient in detail that she should notify our office if she develops signs of worsening cellulitis. This note was generated with [employer] dictation software. It may contain incorrect words, spelling, and punctuation that were not noted in checking the note before signing. I have spent 25 minutes today reviewing labs, records, and history. Time includes coordinating care, interpretation of tests, and counseling the patient/family. This also includes time I spent with the patient for exam, treatment plan, and education as well as documenting clinical information in the electronic health record.
== END 2020-12-31 23:59 ==
LOC: WC 13:15
PROVIDERS: Visit Provider Nurse Practitioner Family
DX: I83.018 Varicose veins of right lower extremity with ulcer other part of lower leg (principal); L97.912 Non-pressure chronic ulcer of unspecified part of right lower leg with fat layer exposed; I87.2 Venous insufficiency (chronic) (peripheral); R60.0 Localized edema; L03.115 Cellulitis of right lower limb; G40.909 Epilepsy, unspecified, not intractable, without status epilepticus; E06.3 Autoimmune thyroiditis; Z79.891 Long term (current) use of opiate analgesic; Z79.01 Long term (current) use of anticoagulants; Z79.890 Hormone replacement therapy; Z79.899 Other long term (current) drug therapy
CPT/HCPCS: 11042; 29580; 87070; 87075; 87077; 87186; 87205; 99212; 99213; G0463

== ENCOUNTER 2021-01-20 08:00 | Outpatient (RCR) | payer SELFPAY ==
[2016-04-30 18:56] VITALS: BMI 44.4
[2021-01-01 00:13] VITALS: BP 143/76; PULSE 81; RESP 16; TEMP 36.5
[2021-01-05 13:55] VITALS: BP 156/87; PULSE 75; TEMP 36.2; BMI 44.4
--- NOTE | 2021-01-05 21:35 | PCM.WC.PN ---
History of Present Illness Date of Service: 01/05/21 Chief Complaint: Venous leg ulcer right lower extremity with cellulitis History of Wound: This is a 65-year-old female who presents to the wound healing center today with complaint of a nonhealing venous leg ulcer on her right lower extremity with also cellulitis. She has a past medical history significant for seizure disorder, and venous insufficiency. The patient states that her issues initially began in September 2020 where she developed cellulitis to her right lower extremity. Shortly afterwards she developed an open wound and was admitted twice to [facility] and was in the emergency department multiple times and placed on multiple rounds of antibiotics including doxycycline, Bactrim, clindamycin, Rocephin, and most recently completed a course of Keflex after being discharged from her 5-day hospital stay from 11/24 through 11/29. Unfortunately, hospital records are not available for review at this time. She does state that she had venous and arterial studies done and states that her arterial studies were within normal limits. I have personally reviewed and arterial studies done from 03/06/2019 which showed no arterial occlusive disease. However prior venous study showed venous insufficiency. She has currently been utilizing Neosporin over the open wound and covering with gauze. She states that the redness from the cellulitis to the right lower extremity has improved somewhat on the Keflex. Denies any other acute concerns. Past medical, family, and social history reviewed and not pertinent to the current visit and all other systems reviewed and negative with exception of those listed above. Progress of Wound: 01/05/2021?the patient's original ulceration to the right lower extremity is healed, however patient did have somewhat of a reaction to the Unna boot and developed a superficial rash to her right lower extremity, though clinically not significant for cellulitis as there is no warmth or drainage. She does also have a new wound on the right lower lateral extremity which she is unsure of however when this happened. Denies any known injury. Denies any other acute concerns. Would like to be seen every 2 weeks. Objective Data Objective Data Vital Signs: Vital Signs Temp Pulse Resp BP 97.2 F L 75 16 156/87 H 01/05/21 13:55 01/05/21 13:55 01/01/21 00:13 01/05/21 13:55 Body Mass Index (BMI) 44.4 Charges/Coding Procedures Integumentary 111xxx-113xx: 76723 Carlene subq tissue 20 sq cm/< Physical Exam Const alert, oriented x3, no apparent distress, healthy appearing and well nourished General Appearance: cooperative Exam Limitations: no limitations HEENT normocephalic Head and Scalp: normal to inspection Mouth: oral and palatal mucosa normal Eyes General Eye: normal appearance of both eyes Resp normal respiratory effort, normal air movement and no use of accessory muscles Effort and Inspection: able to speak in complete sentences Auscultation: clear to auscultation bilaterally Cardio regular rate, regular rhythm, S1 normal heart sound, S2 normal heart sound, no murmurs and peripheral pulses 2+ throughout Palpation: normal PMI Rate: regular rate Heart Sounds: S1 normal and S2 normal GI normal to inspection, nondistended, normoactive bowel sounds, soft to palpation, non-tender and non-distended Palpation: soft Extremity normal to inspection and full ROM General Extremity: normal exam except as noted Skin Wound Narrative: venous leg ulcer to right lower extremity on the lower lateral side with adherent slough, her entire right lower extremity has a superficial macular rash present, however there is no warmth or erythema surrounding the wound bed. Bilaterally she does have chronic venous changes present with hemosiderin staining. Pulses are 2+ dorsal pedis bilaterally. Generalized edema bilateral lower extremities as well. Neuro oriented x3 and moves all extremities Sensorium / Orientation: awake, alert, oriented to person, oriented to place and oriented to time Psych mental status grossly normal, thought process normal and denies hallucinations Appearance: grossly normal Attitude: calm Activity / Motor Behavior: appropriate eye contact Speech: normal speech Thought Process: normal thought process Thought Content: normal thought content Attention / Concentration: attention grossly intact Insight: insight good Judgement: judgement good Debridement Note Debridement Note Post-Debridement Measurements and Additional Note: Post-Debridement Measurements/Treatment - Nurse 1 - General Ulcer Assessment Start: 01/05/21 13:55 Freq: Status: Active Protocol: SOY Activity Type Activity Date Activity User E-Sign Co-Sign Detail Recorded Client Recorded Date Recorded By Document 01/05/21 13:55 KECIA [id number] 01/05/21 14:10 KECIA 01/05/21 13:55 - Today's Visit Information Type of service Follow-up Visit (Physician/[employer]PER[employer] ) Arrival Mode Ambulatory Patient Identification Verified (Name & Yes ) Height and Weight Body Mass Index (BMI) 44.4 BMI Classification Obese Vital Signs Temperature (97.8 F-99.1 F) 97.2 F L Temperature Source Temporal Pulse Rate (60-100) 75 Pulse Location Monitor Blood Pressure (90/60-120/80) 156/87 H Blood Pressure Mean (mm Hg) 110 Source Monitor History Since Last Visit- (Skip if this is Patient's initial visit) Have you changed medications since your No last visit? Any new allergies or adverse reactions No Had a fall/change in ADL's that may No increase risk of falls Signs or symptoms of abuse and/or No neglect since last visit Have you been in the hospital since your No last visit? Has dressing in place as prescribed Yes Has compression in place as prescribed Yes Has offloadiing in place as prescribed Yes Experienced any changes in pain level or No management Left Footwear Regular Shoe Right Footwear Regular Shoe WC - Nurse 1 - General Ulcer Measurement Start: 01/05/21 13:55 Freq: Status: Active Protocol: Activity Type Activity Date Activity User E-Sign Co-Sign Detail Recorded Client Recorded Date Recorded By Document 01/05/21 13:55 KECIA [id number] 01/05/21 14:10 AK 01/05/21 13:55 Wound Center Nurse 1 #3 Right lower lateral leg -Combined with other wound No -Current Size (cm) - Length 0.5 -Current Size (cm) - Width 0.5 -Current Size (cm) - Depth 0.2 -Total Square Cm 0.25 -Date of Last Picture (Recall this 01/05/21 field) -Photo Taken Yes -Tunneling No -Undermining/Tunneling No -Circular Undermining No -Exudate Amt Small -Exudate Type Serosanguineous -Wound Margin Distinct, Outline Attached -Granulation Amt None Present (0 %) -Slough/Fibrin No -Necrosis Amt None Present (0 %) -Texture (Mandy-wound Skin Appearance) Assessed,Rash -Moisture (Mandy-wound Skin Appearance) No Abnormality, Assessed -Color (Mandy-wound Skin Appearance) Rubor -Temperature (Mandy-wound Skin No Abnormality Appearance) (Pt Warm) -Tenderness on Palpation (Mandy-wound No Skin Appearance) -Ulcer Cleansing Rinsed/ Irrigated with Saline -Anesthetic Used 5% Lidocaine Gel Right Calf (cm) 44 Right Ankle (cm) 27 WC - Nurse 2 - General Ulcer CM Notes Start: 01/05/21 13:55 Freq: Status: Active Protocol: Activity Type Activity Date Activity User E-Sign Co-Sign Detail Recorded Client Recorded Date Recorded By Document 01/05/21 14:19 MW [id number] 01/05/21 14:20 MW 01/05/21 14:19 Wound Center Nurse 2 #3 Right lower lateral leg -Time 14:19 -Correct Patient Yes -Correct Side, Site, Position Yes -Correct Procedure Yes -Procedure Performed Yes -Type of Procedure Debridement -Clinical Debridement Subcutaneous -Tissue Removed Subcutaneous -Post Debridement (cm) - Length 1.0 -Post Debridement (cm) - Width 1.0 -Post Debridement (cm) - Depth 0.3 -Total Square (Post) (cm) 1.00 -Area of Debridement (cm) - Length 1.0 -Area of Debridement (cm) - Width 1.0 -Total Square (Area) (cm) 1.00 -Tunneling No -Undermining/Tunneling No -Circular Undermining No -Wound/Ulcer Outcome Not Healed -Ulcer Cleansing Rinsed/ Irrigated with Saline -Foul Odor after Cleansing No -Bioengineered Tissue No -Bleeding Controlled with Pressure -Offloading No -Treatment Response Procedure Tolerated Well -Debridement - Subq, 1st 20sq cm Yes Pain Scale: 0-10 Numeric Is Patient Pain Free? Yes - Nurse 3 - General Ulcer D/C NN Start: 01/05/21 13:55 Freq: Status: Active Protocol: Activity Type Activity Date Activity User E-Sign Co-Sign Detail Recorded Client Recorded Date Recorded By Document 01/05/21 14:35 AK [id number] 01/05/21 14:36 AK 01/05/21 14:35 Wound Care Nurse 3 #3 Right lower lateral leg -Ulcer Cleansing Rinsed/ Irrigated with Saline -Foul Odor after Cleansing No -Primary Dressing Applied Promogran Haleigh Matter -Primary Dressing Covered/Secured with Dry Gauze & Roll Gauze, Secured with Tape -Promogran Haleigh Matter 2 right leg -Lotion applied to leg before No compression wrap -Tubular Bandage Double Layer -Size of Tubigrip Used Size E -Size E ($) 1 Additional Wound Wound debrided: Right lower extremity ulcer Laterality: Right Type of Debridement: Excisional debridement Anesthesia Used: 4% Lidocaine Solution Depth: in the subcutaneous layer Percentage of wound debrided: 100 Instrument Used: 3mm curette Tissue Removed: Slough and devitalized tissue Severity: Fat Layer Exposed Amount of bleeding with debridement: Mild Bleeding Controlled with: Pressure Patient tolerated procedure: Patient tolerated procedure well Assessment/Plan Assessment/Plan (1) Venous ulcer of right leg: CODE(S): I83.019 - Varicose veins of right lower extremity with ulcer of unspecified site; L97.919 - Non-pressure chronic ulcer of unspecified part of right lower leg with unspecified severity (2) Cellulitis of right lower extremity: CODE(S): L03.115 - Cellulitis of right lower limb (3) Venous insufficiency: CODE(S): I87.2 - Venous insufficiency (chronic) (peripheral) (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 At home wound-care instructions: Apply Haleigh to the ulcer change daily, for the surrounding rash she may utilize her [id number] hydrocortisone cream, cellulitis is entirely resolved. Compression: Double layer Tubigrip's for compression Off-loading: The patient was instructed to avoid pressure and friction on the affected areas. Reposition every 2 hours at minimum. Avoid prolonged standing and/or dangling of legs. When seated, feet should be elevated at chest level. Frequent ambulation is encouraged. Diet: Patient encouraged to increase protein intake while taking caution to avoid high carbohydrate and/or sugar intake. Patient is a non-smoker Labs/cultures/imaging: Cultures ordered and collected prior and showed rare MRSA, patient completed her doxycycline. Routine baseline lab work will be requested from prior hospitalization. Vascular studies requested from [place]. Follow-up: Return to clinic in 2 weeks for re-evaluation. Return sooner or report to the emergency room should symptoms worsen, or new symptoms arise. Discussed with patient in detail that she should notify our office if she develops signs of worsening cellulitis. This note was generated with [employer]ive[employer] software. It may contain incorrect words, spelling, and punctuation that were not noted in checking the note before signing. I have spent 25 minutes today reviewing labs, records, and history. Time includes coordinating care, interpretation of tests, and counseling the patient/family. This also includes time I spent with the patient for exam, treatment plan, and education as well as documenting clinical information in the electronic health record.
[2021-01-20 08:11] VITALS: BP 149/73; PULSE 85; TEMP 35.8; BMI 44.4
--- NOTE | 2021-01-20 08:53 | PN.PCM_ITS ---
History of Present Illness Date of Service: 01/20/21 Chief Complaint: Venous leg ulcer right lower extremity with cellulitis History of Wound: This is a 65-year-old female who presents to the wound healing center today with complaint of a nonhealing venous leg ulcer on her right lower extremity with also cellulitis. She has a past medical history significant for seizure disorder, and venous insufficiency. The patient states that her issues initially began in September 2020 where she developed cellulitis to her right lower extremity. Shortly afterwards she developed an open wound and was admitted twice to [facility] and was in the emergency department multiple times and placed on multiple rounds of antibiotics including doxycycline, Bactrim, clindamycin, Rocephin, and most recently completed a course of Keflex after being discharged from her 5-day hospital stay from 11/24 through 11/29. Unfortunately, hospital records are not available for review at this time. She does state that she had venous and arterial studies done and states that her arterial studies were within normal limits. I have personally reviewed and arterial studies done from 03/06/2019 which showed no arterial occlusive disease. However prior venous study showed venous insufficiency. She has currently been utilizing Neosporin over the open wound and covering with gauze. She states that the redness from the cellulitis to the right lower extremity has improved somewhat on the Keflex. Denies any other acute concerns. Past medical, family, and social history reviewed and not pertinent to the current visit and all other systems reviewed and negative with exception of those listed above. Progress of Wound: 01/20/2021? [facility] visit for SAHIL Rodriguez. No rash to RLE. RLE lateral ulcer is mildly improved in size and appearance today. No purulent drainage or malodor. Trace periulcer erythema. Mild RLE edema. Denies F/C, decreased appetite, or general malaise. Compliant with dressing changes. Objective Data Objective Data Vital Signs: Vital Signs Temp Pulse Resp BP 96.5 F L 85 16 149/73 H 01/20/21 08:11 01/20/21 08:11 01/01/21 00:13 01/20/21 08:11 Body Mass Index (BMI) 44.4 Charges/Coding Procedures Integumentary 111xxx-113xx: 53462 Carlene subq tissue 20 sq cm/< Physical Exam Const alert, no apparent distress and healthy appearing General Appearance: cooperative HEENT normocephalic Resp normal respiratory effort Effort and Inspection: able to speak in complete sentences Cardio Peripheral Pulses: dorsalis pedis pulses present right 2+ Extremity full ROM General Extremity: normal exam except as noted Skin Wounds: wounds noted Wound Narrative: venous leg ulcer to right lower extremity on the lower lateral side with small amount of adherent slough. No rash present today. Trace periulcer erythema. No warmth or tenderness of RLE. 1+ pitting edema of RLE. No purulent/malodorous drainage. Bilaterally she does have chronic venous changes present with hemosiderin staining. Neuro oriented x3 and moves all extremities Sensorium / Orientation: awake, alert, oriented to person, oriented to place and oriented to time Psych mental status grossly normal Appearance: grossly normal Attitude: calm Debridement Note Debridement Note Post-Debridement Measurements and Additional Note: Post-Debridement Measurements/Treatment NASREEN - Nurse 1 - General Ulcer Assessment Start: 01/05/21 13:55 Freq: Status: Active Protocol: SOY Activity Type Activity Date Activity User E-Sign Co-Sign Detail Recorded Client Recorded Date Recorded By Document 01/05/21 13:55 AK [id number] 01/05/21 14:10 AK Document 01/20/21 08:11 KR [id number] 01/20/21 08:13 KR 01/05/21 01/20/21 13:55 08:11 - Today's Visit Information Type of service Follow-up Visit Follow-up Visit (Physician/WHISKEY FILTERER (Physician/WHISKEY FILTERER ) ) Arrival Mode Ambulatory Ambulatory Patient Identification Verified (Name & Yes Yes ) Height and Weight Body Mass Index (BMI) 44.4 44.4 BMI Classification Obese Obese Vital Signs Temperature (97.8 F-99.1 F) 97.2 F L 96.5 F L Temperature Source Temporal Temporal Pulse Rate (60-100) 75 85 Pulse Location Monitor Monitor Blood Pressure (90/60-120/80) 156/87 H 149/73 H Blood Pressure Mean (mm Hg) 110 98 Source Monitor Monitor Position Sitting Blood Pressure Location Left Arm History Since Last Visit- (Skip if this is Patient's initial visit) Have you changed medications since your No No last visit? Any new allergies or adverse reactions No No Had a fall/change in ADL's that may No No increase risk of falls Signs or symptoms of abuse and/or No No neglect since last visit Have you been in the hospital since your No No last visit? Has dressing in place as prescribed Yes Yes Has compression in place as prescribed Yes Yes Has offloadiing in place as prescribed Yes N/A Experienced any changes in pain level or No No management Left Footwear Regular Shoe Regular Shoe Right Footwear Regular Shoe Regular Shoe Pain Scale: 0-10 Numeric Is Patient Pain Free? Yes WC - Nurse 1 - General Ulcer Measurement Start: 01/05/21 13:55 Freq: Status: Active Protocol: Activity Type Activity Date Activity User E-Sign Co-Sign Detail Recorded Client Recorded Date Recorded By Document 01/05/21 13:55 AK [id number] 01/05/21 14:10 AK Document 01/20/21 08:11 KR [id number] 01/20/21 08:13 KR 01/05/21 01/20/21 13:55 08:11 Wound Center Nurse 1 #3 Right lower lateral leg -Combined with other wound No -Current Size (cm) - Length 0.5 0.9 -Current Size (cm) - Width 0.5 0.7 -Current Size (cm) - Depth 0.2 0.3 -Total Square Cm 0.25 0.63 -Date of Last Picture (Recall this 01/05/21 field) -Photo Taken Yes -Tunneling No -Undermining/Tunneling No -Circular Undermining No -Exudate Amt Small Small -Exudate Type Serosanguineous Serosanguineous -Wound Margin Distinct, Distinct, Outline Outline Attached Attached -Granulation Amt None Present (0 Medium (34-66%) %) -Granulation Quality Red -Slough/Fibrin No -Necrosis Amt None Present (0 None Present (0 %) %) -Texture (Mandy-wound Skin Appearance) Assessed,Rash Assessed, Scarring -Moisture (Mandy-wound Skin Appearance) No Abnormality, No Abnormality, Assessed Assessed -Color (Mandy-wound Skin Appearance) Rubor No Abnormality, Assessed -Temperature (Mandy-wound Skin No Abnormality No Abnormality Appearance) (Pt Warm) (Pt Warm) -Tenderness on Palpation (Mandy-wound No No Skin Appearance) -Ulcer Cleansing Rinsed/ Rinsed/ Irrigated with Irrigated with Saline Saline -Foul Odor after Cleansing No -Anesthetic Used 5% Lidocaine 4% Lidocaine Gel Solution Right Calf (cm) 44 48.2 Right Ankle (cm) 27 27.4 WC - Nurse 2 - General Ulcer CM Notes Start: 01/05/21 13:55 Freq: Status: Active Protocol: Activity Type Activity Date Activity User E-Sign Co-Sign Detail Recorded Client Recorded Date Recorded By Document 01/05/21 14:19 MW [id number] 01/05/21 14:20 MW 01/05/21 14:19 Wound Center Nurse 2 #3 Right lower lateral leg -Time 14:19 -Correct Patient Yes -Correct Side, Site, Position Yes -Correct Procedure Yes -Procedure Performed Yes -Type of Procedure Debridement -Clinical Debridement Subcutaneous -Tissue Removed Subcutaneous -Post Debridement (cm) - Length 1.0 -Post Debridement (cm) - Width 1.0 -Post Debridement (cm) - Depth 0.3 -Total Square (Post) (cm) 1.00 -Area of Debridement (cm) - Length 1.0 -Area of Debridement (cm) - Width 1.0 -Total Square (Area) (cm) 1.00 -Tunneling No -Undermining/Tunneling No -Circular Undermining No -Wound/Ulcer Outcome Not Healed -Ulcer Cleansing Rinsed/ Irrigated with Saline -Foul Odor after Cleansing No -Bioengineered Tissue No -Bleeding Controlled with Pressure -Offloading No -Treatment Response Procedure Tolerated Well -Debridement - Subq, 1st 20sq cm Yes Pain Scale: 0-10 Numeric Is Patient Pain Free? Yes WC - Nurse 3 - General Ulcer D/C NN Start: 01/05/21 13:55 Freq: Status: Active Protocol: Activity Type Activity Date Activity User E-Sign Co-Sign Detail Recorded Client Recorded Date Recorded By Document 01/05/21 14:35 AK [id number] 01/05/21 14:36 AK Document 01/20/21 08:32 DL [id number] 01/20/21 08:34 DL 01/05/21 01/20/21 14:35 08:32 Wound Care Nurse 3 #3 Right lower lateral leg -Ulcer Cleansing Rinsed/ Rinsed/ Irrigated with Irrigated with Saline Saline -Foul Odor after Cleansing No No -Primary Dressing Applied Promogran Promogran Haleigh Matter Haleigh Matter -Primary Dressing Covered/Secured with Dry Gauze & Dry Gauze,Dry Roll Gauze, Gauze & Roll Secured with Gauze Tape -Promogran Haleigh Matter 2 1 right leg -Lotion applied to leg before No compression wrap -Tubular Bandage Double Layer -Size of Tubigrip Used Size E -Size E ($) 1 -Other tubigrip Treatment Response Procedure Tolerated Well Pain Scale: 0-10 Numeric Is Patient Pain Free? Yes WC - Visit Discharge Discharge Condition Stable Ambulatory Status Ambulatory Transportation Private Auto Wound debrided: RLE lateral Laterality: Right Type of Debridement: Excisional debridement Anesthesia Used: 5% Lidocaine Gel and Cetacaine Depth: in the subcutaneous layer Percentage of wound debrided: 100 Instrument Used: 3mm curette Tissue Removed: Slough and devitalized tissue Severity: Fat Layer Exposed Amount of bleeding with debridement: Mild Bleeding Controlled with: Pressure Patient tolerated procedure: Patient tolerated procedure well Assessment/Plan Assessment/Plan (1) Venous ulcer of right leg: CODE(S): I83.019 - Varicose veins of right lower extremity with ulcer of unspecified site; L97.919 - Non-pressure chronic ulcer of unspecified part of ri ght lower leg with unspecified severity (2) Cellulitis of right lower extremity: CODE(S): L03.115 - Cellulitis of right lower limb (3) Venous insufficiency: CODE(S): I87.2 - Venous insufficiency (chronic) (peripheral) (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 At home wound-care instructions: Perform Haleigh dressing changes daily. Wash with antibacterial soap and water daily prior to dressing change. Compression: Double layer Tubigrip's for compression Off-loading: The patient was instructed to avoid pressure and friction on the affected areas. Reposition every 2 hours at minimum. Avoid prolonged standing and/or dangling of legs. When seated, feet should be elevated at chest level. Frequent ambulation is encouraged. Diet: Patient encouraged to increase protein intake while taking caution to avoid high carbohydrate and/or sugar intake. Patient is a non-smoker Labs/cultures/imaging: Cultures ordered and collected prior and showed rare MRSA, patient completed her doxycycline. Routine baseline lab work will be requested from prior hospitalization. Vascular studies requested from [place]. Follow-up: Return to clinic in 2 weeks for re-evaluation. Return sooner or report to the emergency room should symptoms worsen, or new symptoms arise. Discussed with patient in detail that she should notify our office if she develops signs of worsening cellulitis. This note was generated with [employer]ation software. It may contain incorrect words, spelling, and punctuation that were not noted in checking the note before signing.
== END 2021-01-31 23:59 ==
LOC: WC 08:00
PROVIDERS: Visit Provider Nurse Practitioner Family
DX: L97.812 Non-pressure chronic ulcer of other part of right lower leg with fat layer exposed (principal); I87.2 Venous insufficiency (chronic) (peripheral); E06.3 Autoimmune thyroiditis; G40.909 Epilepsy, unspecified, not intractable, without status epilepticus
CPT/HCPCS: 11042

== ENCOUNTER 2021-03-02 13:00 | Outpatient (RCR) | payer SELFPAY ==
[2021-02-01 00:20] VITALS: BP 149/73; PULSE 85; RESP 16; TEMP 35.8; BMI 44.4
[2021-02-02 13:19] VITALS: BP 145/77; PULSE 77; RESP 18; TEMP 36.4; BMI 44.4
--- NOTE | 2021-02-02 20:49 | PCM.WC.PN ---
History of Present Illness Date of Service: 02/02/21 Chief Complaint: Venous leg ulcer right lower extremity with cellulitis History of Wound: This is a 65-year-old female who presents to the wound healing center today with complaint of a nonhealing venous leg ulcer on her right lower extremity with also cellulitis. She has a past medical history significant for seizure disorder, and venous insufficiency. The patient states that her issues initially began in September 2020 where she developed cellulitis to her right lower extremity. Shortly afterwards she developed an open wound and was admitted twice to [facility] and was in the emergency department multiple times and placed on multiple rounds of antibiotics including doxycycline, Bactrim, clindamycin, Rocephin, and most recently completed a course of Keflex after being discharged from her 5-day hospital stay from 11/24 through 11/29. Unfortunately, hospital records are not available for review at this time. She does state that she had venous and arterial studies done and states that her arterial studies were within normal limits. I have personally reviewed and arterial studies done from 03/06/2019 which showed no arterial occlusive disease. However prior venous study showed venous insufficiency. She has currently been utilizing Neosporin over the open wound and covering with gauze. She states that the redness from the cellulitis to the right lower extremity has improved somewhat on the Keflex. Denies any other acute concerns. Past medical, family, and social history reviewed and not pertinent to the current visit and all other systems reviewed and negative with exception of those listed above. Progress of Wound: stable, no new concerns , doing well with sacihn Objective Data Objective Data Vital Signs: Vital Signs Temp Pulse Resp BP 97.6 F L 77 18 145/77 H 02/02/21 13:19 02/02/21 13:19 02/02/21 13:19 02/02/21 13:19 Body Mass Index (BMI) 44.4 Charges/Coding Procedures Integumentary 111xxx-113xx: 29888 Carlene subq tissue 20 sq cm/< Physical Exam Const alert, no apparent distress and healthy appearing General Appearance: cooperative HEENT normocephalic Resp normal respiratory effort Effort and Inspection: able to speak in complete sentences Cardio Peripheral Pulses: dorsalis pedis pulses present right 2+ Extremity full ROM General Extremity: normal exam except as noted Skin Wounds: wounds noted Wound Narrative: venous leg ulcer to right lower extremity on the lower lateral side with small amount of adherent slough. No rash present today. Trace periulcer erythema. No warmth or tenderness of RLE. 1+ pitting edema of RLE. No purulent/malodorous drainage. Bilaterally she does have chronic venous changes present with hemosiderin staining. Neuro oriented x3 and moves all extremities Sensorium / Orientation: awake, alert, oriented to person, oriented to place and oriented to time Psych mental status grossly normal Appearance: grossly normal Attitude: calm Debridement Note Debridement Note Wound debrided: right VLU Laterality: Right Type of Debridement: Excisional debridement Anesthesia Used: 5% Lidocaine Gel Depth: in the subcutaneous layer Percentage of wound debrided: 100 Instrument Used: 5mm curette Tissue Removed: slough and devitalized tissue Severity: Fat Layer Exposed Amount of bleeding with debridement: Mild Bleeding Controlled with: Pressure Patient tolerated procedure: Patient tolerated procedure well Post-Debridement Measurements and Additional Note: Post-Debridement Measurements/Treatment WC - Nurse 1 - General Ulcer Assessment Start: 02/02/21 13:19 Freq: Status: Active Protocol: SOY Activity Type Activity Date Activity User E-Sign Co-Sign Detail Recorded Client Recorded Date Recorded By Document 02/02/21 13:19 DL [id number] 02/02/21 13:22 DL 02/02/21 13:19 WC - Today's Visit Information Type of service Follow-up Visit (Physician/FAN MAIL CLERK ) Arrival Mode Ambulatory Transfer Assistance None Patient Identification Verified (Name & Yes ) Patient Requires Transmission-Based No Precautions Height and Weight Body Mass Index (BMI) 44.4 BMI Classification Obese Vital Signs Temperature (97.8 F-99.1 F) 97.6 F L Temperature Source Temporal Pulse Rate (60-100) 77 Pulse Location Monitor Respiratory Rate (12-18) 18 Respiratory rate source Observation Blood Pressure (90/60-120/80) 145/77 H Blood Pressure Mean (mm Hg) 99 Source Monitor History Since Last Visit- (Skip if this is Patient's initial visit) Have you changed medications since your No last visit? Any new allergies or adverse reactions No Had a fall/change in ADL's that may No increase risk of falls Signs or symptoms of abuse and/or No neglect since last visit Have you been in the hospital since your No last visit? Has dressing in place as prescribed No Has compression in place as prescribed Yes Has offloadiing in place as prescribed N/A Experienced any changes in pain level or No management Pain Scale: 0-10 Numeric Is Patient Pain Free? Yes WC - Nurse 1 - General Ulcer Measurement Start: 02/02/21 13:19 Freq: Status: Active Protocol: Activity Type Activity Date Activity User E-Sign Co-Sign Detail Recorded Client Recorded Date Recorded By Document 02/02/21 13:19 DL [id number] 02/02/21 13:22 DL 02/02/21 13:19 Wound Center Nurse 1 #3 Right lower lateral leg -Current Size (cm) - Length 1.2 -Current Size (cm) - Width 0.8 -Current Size (cm) - Depth 0.5 -Total Square Cm 0.96 -Photo Taken No -Exudate Amt Small -Exudate Type Serosanguineous -Wound Margin Distinct, Outline Attached -Granulation Amt Large (67-100%) -Granulation Quality Red -Necrosis Amt Small (1-33%) -Necrotic Tissue Type Adherent Slough -Structure Exposed N/A -Texture (Mandy-wound Skin Appearance) Scarring -Moisture (Mandy-wound Skin Appearance) No Abnormality -Color (Mandy-wound Skin Appearance) No Abnormality -Temperature (Mandy-wound Skin No Abnormality Appearance) (Pt Warm) -Tenderness on Palpation (Mandy-wound No Skin Appearance) -Ulcer Cleansing Wound Cleanser -Foul Odor after Cleansing No -Anesthetic Used 5% Lidocaine Gel Right Calf (cm) 45.5 Right Ankle (cm) 24.6 WC - Nurse 2 - General Ulcer CM Notes Start: 02/02/21 13:19 Freq: Status: Active Protocol: Activity Type Activity Date Activity User E-Sign Co-Sign Detail Recorded Client Recorded Date Recorded By Document 02/02/21 13:41 MW [id number] 02/02/21 13:42 MW 02/02/21 13:41 Wound Center Nurse 2 #3 Right lower lateral leg -Time 13:41 -Correct Patient Yes -Correct Side, Site, Position Yes -Correct Procedure Yes -Type of Procedure Debridement -Clinical Debridement Subcutaneous -Tissue Removed Subcutaneous -Post Debridement (cm) - Length 1.4 -Post Debridement (cm) - Width 1.2 -Post Debridement (cm) - Depth 0.3 -Total Square (Post) (cm) 1.68 -Area of Debridement (cm) - Length 1.4 -Area of Debridement (cm) - Width 1.2 -Total Square (Area) (cm) 1.68 -Tunneling No -Undermining/Tunneling No -Circular Undermining No -Wound/Ulcer Outcome Not Healed -Ulcer Cleansing Rinsed/ Irrigated with Saline -Foul Odor after Cleansing No -Bioengineered Tissue No -Bleeding Controlled with Pressure -Offloading No -Treatment Response Procedure Tolerated Well -Debridement - Subq, 1st 20sq cm Yes Pain Scale: 0-10 Numeric Is Patient Pain Free? Yes WC - Nurse 3 - General Ulcer D/C NN Start: 02/02/21 13:19 Freq: Status: Active Protocol: Activity Type Activity Date Activity User E-Sign Co-Sign Detail Recorded Client Recorded Date Recorded By Document 02/02/21 13:27 RANDALL [id number] 02/03/21 13:28 RANDALL 02/02/21 13:27 Wound Care Nurse 3 Right -Multi-Layered Wrap Application Multi-Layer Comp - Right ($ ) WC - Visit Discharge Discharge Condition Stable Clinical Summary of Care Provided Yes Assessment/Plan Assessment/Plan (1) Venous ulcer of right leg: CODE(S): I83.019 - Varicose veins of right lower extremity with ulcer of unspecified site; L97.919 - Non-pressure chronic ulcer of unspecified part of right lower leg with unspecified severity (2) Cellulitis of right lower extremity: CODE(S): L03.115 - Cellulitis of right lower limb (3) Venous insufficiency: CODE(S): I87.2 - Venous insufficiency (chronic) (peripheral) (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 At home wound-care instructions:Sachin applied today with a 3 m wrap for compression. Compression: 3ms for compression Off-loading: The patient was instructed to avoid pressure and friction on the affected areas. Reposition every 2 hours at minimum. Avoid prolonged standing and/or dangling of legs. When seated, feet should be elevated at chest level. Frequent ambulation is encouraged. Diet: Patient encouraged to increase protein intake while taking caution to avoid high carbohydrate and/or sugar intake. Patient is a non-smoker Labs/cultures/imaging: Cultures ordered and collected prior and showed rare MRSA, patient completed her doxycycline. Routine baseline lab work will be requested from prior hospitalization. Vascular studies requested from [place]. Follow-up: Return to clinic in 1 week for re-evaluation. Return sooner or report to the emergency room should symptoms worsen, or new symptoms arise. Discussed with patient in detail that she should notify our office if she develops signs of worsening cellulitis. This note was generated with [employer] dictation software. It may contain incorrect words, spelling, and punctuation that were not noted in checking the note before signing.
[2021-02-07 13:47] VITALS: BP 162/88; PULSE 76; RESP 18; BMI 44.4
[2021-02-09 16:05] VITALS: BP 146/87; PULSE 86; TEMP 36.1; BMI 44.4
--- NOTE | 2021-02-09 16:37 | PN.PCM_ITS ---
History of Present Illness Date of Service: 02/09/21 Chief Complaint: Venous leg ulcer right lower extremity with cellulitis History of Wound: This is a 65-year-old female who presents to the wound healing center today with complaint of a nonhealing venous leg ulcer on her right lower extremity with also cellulitis. She has a past medical history significant for seizure disorder, and venous insufficiency. The patient states that her issues initially began in September 2020 where she developed cellulitis to her right lower extremity. Shortly afterwards she developed an open wound and was admitted twice to [facility] and was in the emergency department multiple times and placed on multiple rounds of antibiotics including doxycycline, Bactrim, clindamycin, Rocephin, and most recently completed a course of Keflex after being discharged from her 5-day hospital stay from 11/24 through 11/29. Unfortunately, hospital records are not available for review at this time. She does state that she had venous and arterial studies done and states that her arterial studies were within normal limits. I have personally reviewed and arterial studies done from 03/06/2019 which showed no arterial occlusive disease. However prior venous study showed venous insufficiency. She has currently been utilizing Neosporin over the open wound and covering with gauze. She states that the redness from the cellulitis to the right lower extremity has improved somewhat on the Keflex. Denies any other acute concerns. Past medical, family, and social history reviewed and not pertinent to the current visit and all other systems reviewed and negative with exception of those listed above. Progress of Wound: stable, no new concerns , doing well with sachin, patient did not tolerate the 3M compression, given the delayed wound healing cultures were recollected today. Her ABIs from [facility] were received and showed no evidence of arterial occlusive disease. Objective Data Objective Data Vital Signs: Vital Signs Temp Pulse Resp BP 96.9 F L 86 18 146/87 H 02/09/21 16:05 02/09/21 16:05 02/07/21 13:47 02/09/21 16:05 Oxygen Delivery Method Room Air Body Mass Index (BMI) 44.4 Lab / Micro Data Micro: Microbiology 02/09/21 14:26 Wound Abcess - Leg, Right Gram Stain - Final 02/09/21 14:26 Wound Abcess - Leg, Right Wound Culture - Preliminary Staphylococcus aureus Charges/Coding Procedures Integumentary 111xxx-113xx: 59968 Carlene subq tissue 20 sq cm/< Physical Exam Const alert, no apparent distress and healthy appearing General Appearance: cooperative HEENT normocephalic Resp normal respiratory effort Effort and Inspection: able to speak in complete sentences Cardio Peripheral Pulses: dorsalis pedis pulses present right 2+ Extremity full ROM General Extremity: normal exam except as noted Skin Wounds: wounds noted Wound Narrative: venous leg ulcer to right lower extremity on the lower lateral side with small amount of adherent slough. No rash present today. Trace periulcer erythema. No warmth or tenderness of RLE. 1+ pitting edema of RLE. No purulent/malodorous drainage. Bilaterally she does have chronic venous changes present with hemosiderin staining. Neuro oriented x3 and moves all extremities Sensorium / Orientation: awake, alert, oriented to person, oriented to place and oriented to time Psych mental status grossly normal Appearance: grossly normal Attitude: calm Debridement Note Debridement Note Post-Debridement Measurements and Additional Note: Post-Debridement Measurements/Treatment - Nurse 1 - General Ulcer Assessment Start: 02/02/21 13:19 Freq: Status: Active Protocol: SOY Activity Type Activity Date Activity User E-Sign Co-Sign Detail Recorded Client Recorded Date Recorded By Document 02/02/21 13:19 DL [id number] 02/02/21 13:22 DL Document 02/07/21 13:47 [facility] [id number] 02/07/21 13:59 [facility] Document 02/09/21 16:05 AK [id number] 02/09/21 16:06 AL 02/02/21 02/07/21 02/09/21 13:19 13:47 16:05 - Today's Visit Information Type of service Follow-up Visit Nurse-only Follow-up Visit (Physician/OPERATIONAL TRAINER Visit (Physician/OPERATIONAL TRAINER ) ) Arrival Mode Ambulatory Ambulatory Ambulatory Transfer Assistance None None Patient Identification Verified (Name & Yes Yes Yes ) Patient Requires Transmission-Based No No No Precautions Safety Precautions NA Height and Weight Body Mass Index (BMI) 44.4 44.4 44.4 BMI Classification Obese Obese Obese Vital Signs Temperature (97.8 F-99.1 F) 97.6 F L 96.9 F L Temperature Source Temporal Temporal Pulse Rate (60-100) 77 76 86 Pulse Location Monitor Monitor Monitor Respiratory Rate (12-18) 18 18 Respiratory rate source Observation Observation Oxygen Delivery Method Room Air Blood Pressure (90/60-120/80) 145/77 H 162/88 H 146/87 H Blood Pressure Mean (mm Hg) 99 112 106 Source Monitor Monitor Monitor Position Sitting Blood Pressure Location Left Forearm History Since Last Visit- (Skip if this is Patient's initial visit) Have you changed medications since your No No No last visit? Any new allergies or adverse reactions No No No Had a fall/change in ADL's that may No No No increase risk of falls Signs or symptoms of abuse and/or No No No neglect since last visit Have you been in the hospital since your No No No last visit? Has dressing in place as prescribed No Yes Yes Has compression in place as prescribed Yes Yes Yes Has offloadiing in place as prescribed N/A N/A N/A Experienced any changes in pain level or No No No management Left Footwear Regular Shoe Regular Shoe Right Footwear Regular Shoe Regular Shoe Pain Scale: 0-10 Numeric Is Patient Pain Free? Yes WC - Nurse 1 - General Ulcer Measurement Start: 02/02/21 13:19 Freq: Status: Active Protocol: Activity Type Activity Date Activity User E-Sign Co-Sign Detail Recorded Client Recorded Date Recorded By Document 02/02/21 13:19 DL [id number] 02/02/21 13:22 DL Document 02/07/21 13:47 [facility] [id number] 02/07/21 13:59 [facility] Document 02/09/21 16:05 AK [id number] 02/09/21 16:06 AL 02/02/21 02/07/21 02/09/21 13:19 13:47 16:05 Wound Center Nurse 1 #3 Right lower lateral leg -Current Size (cm) - Length 1.2 1.2 -Current Size (cm) - Width 0.8 1.2 -Current Size (cm) - Depth 0.5 0.2 -Total Square Cm 0.96 1.44 -Photo Taken No No -Tunneling No -Undermining/Tunneling No -Circular Undermining No -Change in Wound Grade/Stage No -Exudate Amt Small Medium -Exudate Type Serosanguineous Serosanguineous -Wound Margin Distinct, Distinct, Outline Outline Attached Attached -Granulation Amt Large (67-100%) None Present (0 %) -Granulation Quality Red N/A -Slough/Fibrin Yes -Necrosis Amt Small (1-33%) Medium (34-66%) -Necrotic Tissue Type Adherent Slough Adherent Slough -Structure Exposed N/A N/A -Texture (Mandy-wound Skin Appearance) Scarring No Abnormality, Assessed -Moisture (Mandy-wound Skin Appearance) No Abnormality No Abnormality, Assessed -Color (Mandy-wound Skin Appearance) No Abnormality No Abnormality, Assessed -Temperature (Mandy-wound Skin No Abnormality No Abnormality Appearance) (Pt Warm) (Pt Warm) -Tenderness on Palpation (Mandy-wound No No Skin Appearance) -Ulcer Cleansing Wound Cleanser Rinsed/ Irrigated with Saline -Foul Odor after Cleansing No No -Anesthetic Used 5% Lidocaine 5% Lidocaine Gel Gel Lower Limb Edema Present Yes Right Calf (cm) 45.5 48.4 46 Right Ankle (cm) 24.6 24.5 26 WC - Nurse 2 - General Ulcer CM Notes Start: 02/02/21 13:19 Freq: Status: Active Protocol: Activity Type Activity Date Activity User E-Sign Co-Sign Detail Recorded Client Recorded Date Recorded By Document 02/02/21 13:41 MW [id number] 02/02/21 13:42 MW Document 02/09/21 14:22 MT [id number] 02/09/21 14:28 MT 02/02/21 02/09/21 13:41 14:22 Wound Center Nurse 2 #3 Right lower lateral leg -Time 13:41 14:22 -Correct Patient Yes Yes -Correct Side, Site, Position Yes Yes -Correct Procedure Yes Yes -Procedure Performed Yes -Type of Procedure Debridement Debridement -Clinical Debridement Subcutaneous Subcutaneous -Tissue Removed Subcutaneous Subcutaneous -Post Debridement (cm) - Length 1.4 1.5 -Post Debridement (cm) - Width 1.2 1.5 -Post Debridement (cm) - Depth 0.3 0.4 -Total Square (Post) (cm) 1.68 2.25 -Area of Debridement (cm) - Length 1.4 1.5 -Area of Debridement (cm) - Width 1.2 1.5 -Total Square (Area) (cm) 1.68 2.25 -Tunneling No No -Undermining/Tunneling No No -Circular Undermining No No -Wound/Ulcer Outcome Not Healed Not Healed -Ulcer Cleansing Rinsed/ Rinsed/ Irrigated with Irrigated with Saline Saline -Foul Odor after Cleansing No No -Bioengineered Tissue No No -Bleeding Controlled with Pressure Pressure -Offloading No No -Treatment Response Procedure Procedure Tolerated Well Tolerated Well -Debridement - Subq, 1st 20sq cm Yes Yes Pain Scale: 0-10 Numeric Is Patient Pain Free? Yes Yes WC - Nurse 3 - General Ulcer D/C NN Start: 02/02/21 13:19 Freq: Status: Active Protocol: Activity Type Activity Date Activity User E-Sign Co-Sign Detail Recorded Client Recorded Date Recorded By Document 02/02/21 13:27 PL [id number] 02/03/21 13:28 PL Document 02/07/21 13:47 BMF [id number] 02/07/21 13:59 BMF Document 02/09/21 14:46 ML [id number] 02/09/21 14:47 ML 02/02/21 02/07/21 02/09/21 13:27 13:47 14:46 #3 Right lower lateral leg -Ulcer Cleansing Rinsed/ Rinsed/ Irrigated with Irrigated with Saline Saline -Foul Odor after Cleansing No No -Primary Dressing Applied Promogran Promogran Sachin Matter Sachin Matter -Primary Dressing Covered/Secured with Dry Gauze & Dry Gauze, Roll Gauze, Secured with Secured with Tape Tape -Promogran Sachin Matter 1 0 Wound Care Nurse 3 Right -Multi-Layered Wrap Application Multi-Layer Comp - Right ($ ) -Tubular Bandage Double Layer -Size of Tubigrip Used Size E -Size E ($) 1 Treatment Response Procedure Tolerated Well Vital Signs Pulse Rate (60-100) 76 Pulse Location Monitor Respiratory Rate (12-18) 18 Respiratory rate source Observation Oxygen Delivery Method Room Air Blood Pressure (90/60-120/80) 162/88 H Blood Pressure Mean (mm Hg) 112 Source Monitor Position Sitting Blood Pressure Location Left Forearm WC - Visit Discharge Discharge Condition Stable Stable Stable Ambulatory Status Ambulatory Ambulatory Transportation Private Auto Medication Reconcilliation completed & No provided to patient/care provider Clinical Summary of Care Provided Yes Yes Additional Wound Wound debrided: Right venous leg ulcer Laterality: Right Type of Debridement: Excisional debridement Anesthesia Used: 5% Lidocaine Gel Depth: in the subcutaneous layer Percentage of wound debrided: 100 Instrument Used: 5mm curette Tissue Removed: Slough and devitalized tissue Severity: Fat Layer Exposed Amount of bleeding with debridement: Mild Bleeding Controlled with: Pressure Patient tolerated procedure: Patient tolerated procedure well Assessment/Plan Assessment/Plan (1) Venous ulcer of right leg: CODE(S): I83.019 - Varicose veins of right lower extremity with ulcer of u nspecified site; L97.919 - Non-pressure chronic ulcer of unspecified part of right lower leg with unspecified severity (2) Cellulitis of right lower extremity: CODE(S): L03.115 - Cellulitis of right lower limb (3) Venous insufficiency: CODE(S): I87.2 - Venous insufficiency (chronic) (peripheral) (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 At home wound-care instructions:Sachin applied today with patient to utilize her own compression stocking which is 20 to 30 mmHg Compression: Bilateral compression stockings Off-loading: The patient was instructed to avoid pressure and friction on the affected areas. Reposition every 2 hours at minimum. Avoid prolonged standing and/or dangling of legs. When seated, feet should be elevated at chest level. Frequent ambulation is encouraged. Diet: Patient encouraged to increase protein intake while taking caution to avoid high carbohydrate and/or sugar intake. Patient is a non-smoker Labs/cultures/imaging: Cultures ordered and collected today. Routine baseline lab work will be requested from prior hospitalization. Vascular studies requested from [facility] and showed no evidence of arterial occlusive disease. Follow-up: Return to clinic in 2 week for re-evaluation. Return sooner or report to the emergency room should symptoms worsen, or new symptoms arise. Discussed with patient in detail that she should notify our office if she develops signs of worsening cellulitis. This note was generated with [employer] software. It may contain incorrect words, spelling, and punctuation that were not noted in checking the note before signing.
--- NOTE | 2021-02-23 08:37 | PN.PCM_ITS ---
History of Present Illness Date of Service: 02/23/21 Chief Complaint: Venous leg ulcer right lower extremity with cellulitis History of Wound: This is a 65-year-old female who presents to the wound healing center today with complaint of a nonhealing venous leg ulcer on her right lower extremity with also cellulitis. She has a past medical history significant for seizure disorder, and venous insufficiency. The patient states that her issues initially began in September 2020 where she developed cellulitis to her right lower extremity. Shortly afterwards she developed an open wound and was admitted twice to [facility] and was in the emergency department multiple times and placed on multiple rounds of antibiotics including doxycycline, Bactrim, clindamycin, Rocephin, and most recently completed a course of Keflex after being discharged from her 5-day hospital stay from 11/24 through 11/29. Unfortunately, hospital records are not available for review at this time. She does state that she had venous and arterial studies done and states that her arterial studies were within normal limits. I have personally reviewed and arterial studies done from 03/06/2019 which showed no arterial occlusive disease. However prior venous study showed venous insufficiency. She has currently been utilizing Neosporin over the open wound and covering with gauze. She states that the redness from the cellulitis to the right lower extremity has improved somewhat on the Keflex. Denies any other acute concerns. Past medical, family, and social history reviewed and not pertinent to the current visit and all other systems reviewed and negative with exception of those listed above. Progress of Wound: stable, no new concerns , doing well with sachin, patient did not tolerate the 3M compression, given the delayed wound healing cultures were recollected prior and showed MRSA, patient is tolerating her doxycycline well. Her ABIs from [facility] were received and showed no evidence of arterial occlusive disease. Patient will attempt Unna boots again Objective Data Objective Data Vital Signs: Vital Signs Temp Pulse Resp BP 97.3 F L 69 18 132/73 H 02/23/21 13:59 02/23/21 13:59 02/07/21 13:47 02/23/21 13:59 Oxygen Delivery Method Room Air Body Mass Index (BMI) 44.4 Lab / Micro Data Micro: Microbiology 02/09/21 14:26 Wound Abcess - Leg, Right Gram Stain - Final 02/09/21 14:26 Wound Abcess - Leg, Right Wound Culture - Final Meth. resistant Staph. aureus 02/09/21 14:26 Wound Abcess - Leg, Right Anaerobic Culture - Final No anaerobic bacteria isolated. Charges/Coding Procedures Integumentary [id number]: [id number] Carlene subq tissue 20 sq cm/< Physical Exam Const alert, no apparent distress and healthy appearing General Appearance: cooperative HEENT normocephalic Resp normal respiratory effort Effort and Inspection: able to speak in complete sentences Cardio Peripheral Pulses: dorsalis pedis pulses present right 2+ Extremity full ROM General Extremity: normal exam except as noted Skin Wounds: wounds noted Wound Narrative: venous leg ulcer to right lower extremity on the lower lateral side with small amount of adherent slough. No rash present today. Trace periulcer erythema. No warmth or tenderness of RLE. 1+ pitting edema of RLE. No purulent/malodorous drainage. Bilaterally she does have chronic venous changes present with hemosiderin staining. Neuro oriented x3 and moves all extremities Sensorium / Orientation: awake, alert, oriented to person, oriented to place and oriented to time Psych mental status grossly normal Appearance: grossly normal Attitude: calm Debridement Note Debridement Note Post-Debridement Measurements and Additional Note: Post-Debridement Measurements/Treatment - Nurse 1 - General Ulcer Assessment Start: 02/02/21 13:19 Freq: Status: Active Protocol: SOY Activity Type Activity Date Activity User E-Sign Co-Sign Detail Recorded Client Recorded Date Recorded By Document 02/02/21 13:19 DL [id number] 02/02/21 13:22 DL Document 02/07/21 13:47 [facility] [id number] 02/07/21 13:59 [facility] Document 02/09/21 16:05 AK [id number] 02/09/21 16:06 AK Document 02/23/21 13:59 KR [id number] 02/23/21 14:01 KR 02/02/21 02/07/21 02/09/21 13:19 13:47 16:05 - Today's Visit Information Type of service Follow-up Visit Nurse-only Follow-up Visit (Physician/UNIT ASSISTANT Visit (Physician/UNIT ASSISTANT ) ) Arrival Mode Ambulatory Ambulatory Ambulatory Transfer Assistance None None Patient Identification Verified (Name & Yes Yes Yes ) Patient Requires Transmission-Based No No No Precautions Safety Precautions NA Height and Weight Body Mass Index (BMI) 44.4 44.4 44.4 BMI Classification Obese Obese Obese Vital Signs Temperature (97.8 F-99.1 F) 97.6 F L 96.9 F L Temperature Source Temporal Temporal Pulse Rate (60-100) 77 76 86 Pulse Location Monitor Monitor Monitor Respiratory Rate (12-18) 18 18 Respiratory rate source Observation Observation Oxygen Delivery Method Room Air Blood Pressure (90/60-120/80) 145/77 H 162/88 H 146/87 H Blood Pressure Mean (mm Hg) 99 112 106 Source Monitor Monitor Monitor Position Sitting Blood Pressure Location Left Forearm History Since Last Visit- (Skip if this is Patient's initial visit) Have you changed medications since your No No No last visit? Any new allergies or adverse reactions No No No Had a fall/change in ADL's that may No No No increase risk of falls Signs or symptoms of abuse and/or No No No neglect since last visit Have you been in the hospital since your No No No last visit? Has dressing in place as prescribed No Yes Yes Has compression in place as prescribed Yes Yes Yes Has offloadiing in place as prescribed N/A N/A N/A Experienced any changes in pain level or No No No management Left Footwear Regular Shoe Regular Shoe Right Footwear Regular Shoe Regular Shoe Pain Scale: 0-10 Numeric Is Patient Pain Free? Yes 02/23/21 13:59 WC - Today's Visit Information Type of service Follow-up Visit (Physician/UNIT ASSISTANT ) Arrival Mode Ambulatory Transfer Assistance Patient Identification Verified (Name & Yes ) Patient Requires Transmission-Based Precautions Safety Precautions Height and Weight Body Mass Index (BMI) 44.4 BMI Classification Obese Vital Signs Temperature (97.8 F-99.1 F) 97.3 F L Temperature Source Oral Pulse Rate (60-100) 69 Pulse Location Monitor Respiratory Rate (12-18) Respiratory rate source Oxygen Delivery Method Blood Pressure (90/60-120/80) 132/73 H Blood Pressure Mean (mm Hg) 92 Source Monitor Position Semi-Fowlers Blood Pressure Location Right Arm History Since Last Visit- (Skip if this is Patient's initial visit) Have you changed medications since your No last visit? Any new allergies or adverse reactions No Had a fall/change in ADL's that may No increase risk of falls Signs or symptoms of abuse and/or No neglect since last visit Have you been in the hospital since your No last visit? Has dressing in place as prescribed Yes Has compression in place as prescribed Yes Has offloadiing in place as prescribed N/A Experienced any changes in pain level or No management Left Footwear Right Footwear Regular Shoe Pain Scale: 0-10 Numeric Is Patient Pain Free? Yes WC - Nurse 1 - General Ulcer Measurement Start: 02/02/21 13:19 Freq: Status: Active Protocol: Activity Type Activity Date Activity User E-Sign Co-Sign Detail Recorded Client Recorded Date Recorded By Document 02/02/21 13:19 DL [id number] 02/02/21 13:22 DL Document 02/07/21 13:47 [facility] [id number] 02/07/21 13:59 [facility]F Document 02/09/21 16:05 AK [id number] 02/09/21 16:06 AK Document 02/23/21 13:59 KR [id number] 02/23/21 14:01 KR 02/02/21 02/07/21 02/09/21 13:19 13:47 16:05 Wound Center Nurse 1 #3 Right lower lateral leg -Current Size (cm) - Length 1.2 1.2 -Current Size (cm) - Width 0.8 1.2 -Current Size (cm) - Depth 0.5 0.2 -Total Square Cm 0.96 1.44 -Photo Taken No No -Tunneling No -Undermining/Tunneling No -Circular Undermining No -Change in Wound Grade/Stage No -Exudate Amt Small Medium -Exudate Type Serosanguineous Serosanguineous -Wound Margin Distinct, Distinct, Outline Outline Attached Attached -Granulation Amt Large (67-100%) None Present (0 %) -Granulation Quality Red N/A -Slough/Fibrin Yes -Necrosis Amt Small (1-33%) Medium (34-66%) -Necrotic Tissue Type Adherent Slough Adherent Slough -Structure Exposed N/A N/A -Texture (Mandy-wound Skin Appearance) Scarring No Abnormality, Assessed -Moisture (Mandy-wound Skin Appearance) No Abnormality No Abnormality, Assessed -Color (Mandy-wound Skin Appearance) No Abnormality No Abnormality, Assessed -Temperature (Mandy-wound Skin No Abnormality No Abnormality Appearance) (Pt Warm) (Pt Warm) -Tenderness on Palpation (Mandy-wound No No Skin Appearance) -Ulcer Cleansing Wound Cleanser Rinsed/ Irrigated with Saline -Foul Odor after Cleansing No No -Anesthetic Used 5% Lidocaine 5% Lidocaine Gel Gel Lower Limb Edema Present Yes Right Calf (cm) 45.5 48.4 46 Right Ankle (cm) 24.6 24.5 26 02/23/21 13:59 Wound Center Nurse 1 #3 Right lower lateral leg -Current Size (cm) - Length 1.2 -Current Size (cm) - Width 1 -Current Size (cm) - Depth 0.2 -Total Square Cm 1.2 -Photo Taken -Tunneling -Undermining/Tunneling -Circular Undermining -Change in Wound Grade/Stage -Exudate Amt Medium -Exudate Type Serosanguineous -Wound Margin Distinct, Outline Attached -Granulation Amt Medium (34-66%) -Granulation Quality Red -Slough/Fibrin -Necrosis Amt Small (1-33%) -Necrotic Tissue Type Adherent Slough -Structure Exposed -Texture (Mandy-wound Skin Appearance) Assessed, Scarring -Moisture (Mandy-wound Skin Appearance) No Abnormality, Assessed -Color (Mandy-wound Skin Appearance) No Abnormality, Assessed -Temperature (Mandy-wound Skin No Abnormality Appearance) (Pt Warm) -Tenderness on Palpation (Mandy-wound No Skin Appearance) -Ulcer Cleansing Rinsed/ Irrigated with Saline -Foul Odor after Cleansing No -Anesthetic Used 4% Lidocaine Solution,5% Lidocaine Gel Lower Limb Edema Present Right Calf (cm) 47.9 Right Ankle (cm) 27 WC - Nurse 2 - General Ulcer CM Notes Start: 02/02/21 13:19 Freq: Status: Active Protocol: Activity Type Activity Date Activity User E-Sign Co-Sign Detail Recorded Client Recorded Date Recorded By Document 02/02/21 13:41 MW [id number] 02/02/21 13:42 MW Document 02/09/21 14:22 MT [id number] 02/09/21 14:28 MT Document 02/23/21 14:14 MW [id number] 02/23/21 14:17 MW 02/02/21 02/09/21 02/23/21 13:41 14:22 14:14 Wound Center Nurse 2 #3 Right lower lateral leg -Time 13:41 14:22 14:14 -Correct Patient Yes Yes Yes -Correct Side, Site, Position Yes Yes Yes -Correct Procedure Yes Yes Yes -Procedure Performed Yes Yes -Type of Procedure Debridement Debridement Debridement -Clinical Debridement Subcutaneous Subcutaneous Subcutaneous -Tissue Removed Subcutaneous Subcutaneous Subcutaneous -Post Debridement (cm) - Length 1.4 1.5 1.3 -Post Debridement (cm) - Width 1.2 1.5 1.3 -Post Debridement (cm) - Depth 0.3 0.4 0.3 -Total Square (Post) (cm) 1.68 2.25 1.69 -Area of Debridement (cm) - Length 1.4 1.5 1.3 -Area of Debridement (cm) - Width 1.2 1.5 1.3 -Total Square (Area) (cm) 1.68 2.25 1.69 -Tunneling No No No -Undermining/Tunneling No No No -Circular Undermining No No No -Wound/Ulcer Outcome Not Healed Not Healed Not Healed -Ulcer Cleansing Rinsed/ Rinsed/ Rinsed/ Irrigated with Irrigated with Irrigated with Saline Saline Saline -Foul Odor after Cleansing No No No -Bioengineered Tissue No No No -Bleeding Controlled with Pressure Pressure Pressure -Offloading No No No -Treatment Response Procedure Procedure Procedure Tolerated Well Tolerated Well Tolerated Well -Debridement - Subq, 1st 20sq cm Yes Yes Yes Pain Scale: 0-10 Numeric Is Patient Pain Free? Yes Yes Yes WC - Nurse 3 - General Ulcer D/C NN Start: 02/02/21 13:19 Freq: Status: Active Protocol: Activity Type Activity Date Activity User E-Sign Co-Sign Detail Recorded Client Recorded Date Recorded By Document 02/02/21 13:27 PL [id number] 02/03/21 13:28 PL Document 02/07/21 13:47 [facility] [id number] 02/07/21 13:59 [facility] Document 02/09/21 14:46 ML [id number] 02/09/21 14:47 ML Document 02/23/21 14:33 AK [id number] 02/23/21 14:34 AK 02/02/21 02/07/21 02/09/21 13:27 13:47 14:46 #3 Right lower lateral leg -Ulcer Cleansing Rinsed/ Rinsed/ Irrigated with Irrigated with Saline Saline -Foul Odor after Cleansing No No -Negative Pressure Wound Therapy -Primary Dressing Applied Promogran Promogran Sachin Matter Sachin Matter -Primary Dressing Covered/Secured with Dry Gauze & Dry Gauze, Roll Gauze, Secured with Secured with Tape Tape -Promogran -Promogran Sachin Matter 1 0 Wound Care Nurse 3 Right -Lotion applied to leg before compression wrap -Multi-Layered Wrap Application Multi-Layer Comp - Right ($ ) -Tubular Bandage Double Layer -Size of Tubigrip Used Size E -Size E ($) 1 Treatment Response Procedure Tolerated Well Vital Signs Pulse Rate (60-100) 76 Pulse Location Monitor Respiratory Rate (12-18) 18 Respiratory rate source Observation Oxygen Delivery Method Room Air Blood Pressure (90/60-120/80) 162/88 H Blood Pressure Mean (mm Hg) 112 Source Monitor Position Sitting Blood Pressure Location Left Forearm WC - Visit Discharge Discharge Condition Stable Stable Stable Ambulatory Status Ambulatory Ambulatory Transportation Private Auto Medication Reconcilliation completed & No provided to patient/care provider Clinical Summary of Care Provided Yes Yes 02/23/21 14:33 #3 Right lower lateral leg -Ulcer Cleansing Rinsed/ Irrigated with Saline -Foul Odor after Cleansing No -Negative Pressure Wound Therapy N/A -Primary Dressing Applied NonAdherent Contact Layer, Promogran -Primary Dressing Covered/Secured with -Promogran 1 -Promogran Sachin Matter Wound Care Nurse 3 Right -Lotion applied to leg before No compression wrap -Multi-Layered Wrap Application Unna Boot - Right ($) -Tubular Bandage -Size of Tubigrip Used -Size E ($) Treatment Response Vital Signs Pulse Rate (60-100) Pulse Location Respiratory Rate (12-18) Respiratory rate source Oxygen Delivery Method Blood Pressure (90/60-120/80) Blood Pressure Mean (mm Hg) Source Position Blood Pressure Location WC - Visit Discharge Discharge Condition Stable Ambulatory Status Ambulatory Transportation Private Auto Medication Reconcilliation completed & Yes provided to patient/care provider Clinical Summary of Care Provided Yes Additional Wound Wound debrided: Right venous leg ulcer Laterality: Right Type of Debridement: Excisional debridement Anesthesia Used: 5% Lidocaine Gel Depth: in the subcutaneous layer Percentage of wound debrided: 100 Instrument Used: 5mm curette Tissue Removed: Slough and devitalized tissue Severity: Fat Layer Exposed Amount of bleeding with debridement: Mild Bleeding Controlled with: Pressure Patient tolerated procedure: Patient tolerated procedure well Assessment/Plan Assessment/Plan (1) Venous ulcer of right leg: CODE(S): I83.019 - Varicose veins of right lower extremity with ulcer of unspecified site; L97.919 - Non-pressure chronic ulcer of unspecified part of right lower leg with unspecified severity (2) Cellulitis of right lower extremity: CODE(S): L03.115 - Cellulitis of right lower limb (3) Venous insufficiency: CODE(S): I87.2 - Venous insufficiency (chronic) (peripheral) (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 At home wound-care instructions:Sachin applied today with with an Unna boot over top, this will be changed out in 1 week Compression: Bilateral compression stockings Off-loading: The patient was instructed to avoid pressure and friction on the affected areas. Reposition every 2 hours at minimum. Avoid prolonged standing and/or dangling of legs. When seated, feet should be elevated at chest level. Frequent ambulation is encouraged. Diet: Patient encouraged to increase protein intake while taking caution to avoid high carbohydrate and/or sugar intake. Patient is a non-smoker Labs/cultures/imaging: Cultures ordered and collected prior and showed MRSA, patient tolerating her doxycycline well. Routine baseline lab work will be requested from prior hospitalization. Vascular studies requested from [facility] and showed no evidence of arterial occlusive disease. Follow-up: Return to clinic in 2 week for re-evaluation. Return sooner or report to the emergency room should symptoms worsen, or new symptoms arise. Discussed with patient in detail that she should notify our office if she develops signs of worsening cellulitis. This note was generated with [employer] dictation software. It may contain incorrect words, spelling, and punctuation that were not noted in checking the note before signing.
[2021-02-23 13:59] VITALS: BP 132/73; PULSE 69; TEMP 36.3; BMI 44.4
[2021-03-02 13:19] VITALS: BP 128/68; PULSE 68; TEMP 35.7; BMI 44.4
== END 2021-03-02 23:59 ==
LOC: WC 13:00
PROVIDERS: Visit Provider Nurse Practitioner Family
DX: I83.018 Varicose veins of right lower extremity with ulcer other part of lower leg (principal); L97.812 Non-pressure chronic ulcer of other part of right lower leg with fat layer exposed; L03.115 Cellulitis of right lower limb; I87.2 Venous insufficiency (chronic) (peripheral); G40.909 Epilepsy, unspecified, not intractable, without status epilepticus; E06.3 Autoimmune thyroiditis; E66.9 Obesity, unspecified; Z68.41 Body mass index [BMI] 40.0-44.9, adult; Z79.890 Hormone replacement therapy; Z79.899 Other long term (current) drug therapy
CPT/HCPCS: 11042; 29580; 29581; 87070; 87075; 87077; 87186; 87205; 99212; G0463

== ENCOUNTER 2021-03-30 13:30 | Outpatient (RCR) | payer SELFPAY ==
[2021-03-03 00:15] VITALS: BP 128/68; PULSE 68; RESP 18; TEMP 35.7; BMI 44.4
--- NOTE | 2021-03-08 11:11 | WC ---
Received a call from patient. Stated she is unable to keep her appt at the wound center this week due to a family member with covid. Rescheduled for next week. [facility] [employer] notified. Verbal order received for wound care. Patient is to unwrap unna and remove. Cleanse ulcer with soap and water. Apply sachin to ulcer and cover with gauze. Change daily until next appt. Instructions given to patient. Voiced understanding.
[2021-03-16 13:42] VITALS: BP 138/75; PULSE 81; TEMP 36.3; BMI 44.4
--- NOTE | 2021-03-16 16:13 | PCM.WC.PN ---
History of Present Illness Date of Service: 03/16/21 Chief Complaint: Venous leg ulcer right lower extremity with cellulitis History of Wound: This is a 65-year-old female who presents to the wound healing center today with complaint of a nonhealing venous leg ulcer on her right lower extremity with also cellulitis. She has a past medical history significant for seizure disorder, and venous insufficiency. The patient states that her issues initially began in September 2020 where she developed cellulitis to her right lower extremity. Shortly afterwards she developed an open wound and was admitted twice to [facility] and was in the emergency department multiple times and placed on multiple rounds of antibiotics including doxycycline, Bactrim, clindamycin, Rocephin, and most recently completed a course of Keflex after being discharged from her 5-day hospital stay from 11/24 through 11/29. Unfortunately, hospital records are not available for review at this time. She does state that she had venous and arterial studies done and states that her arterial studies were within normal limits. I have personally reviewed and arterial studies done from 03/06/2019 which showed no arterial occlusive disease. However prior venous study showed venous insufficiency. She has currently been utilizing Neosporin over the open wound and covering with gauze. She states that the redness from the cellulitis to the right lower extremity has improved somewhat on the Keflex. Denies any other acute concerns. Past medical, family, and social history reviewed and not pertinent to the current visit and all other systems reviewed and negative with exception of those listed above. Progress of Wound: 03/16/2021?patient's wound has improved in size and she tolerated the Unna boot well, no new concerns Objective Data Objective Data Vital Signs: Vital Signs Temp Pulse Resp BP 97.4 F L 81 18 138/75 H 03/16/21 13:42 03/16/21 13:42 03/03/21 00:15 03/16/21 13:42 Body Mass Index (BMI) 44.4 Charges/Coding Procedures Integumentary 111xxx-113xx: 18216 Carlene subq tissue 20 sq cm/< Physical Exam Const alert, no apparent distress and healthy appearing General Appearance: cooperative HEENT normocephalic Resp normal respiratory effort Effort and Inspection: able to speak in complete sentences Cardio Peripheral Pulses: dorsalis pedis pulses present right 2+ Extremity full ROM General Extremity: normal exam except as noted Skin Wounds: wounds noted Wound Narrative: venous leg ulcer to right lower extremity on the lower lateral side with small amount of adherent slough. No rash present today. Trace periulcer erythema. No warmth or tenderness of RLE. 1+ pitting edema of RLE. No purulent/malodorous drainage. Bilaterally she does have chronic venous changes present with hemosiderin staining. Neuro oriented x3 and moves all extremities Sensorium / Orientation: awake, alert, oriented to person, oriented to place and oriented to time Psych mental status grossly normal Appearance: grossly normal Attitude: calm Debridement Note Debridement Note Wound debrided: Right lower extremity ulcer Laterality: Right Type of Debridement: Excisional debridement Anesthesia Used: 5% Lidocaine Gel Depth: Down to and including healthy tissue and in the subcutaneous layer Percentage of wound debrided: 100 Instrument Used: 3mm curette Tissue Removed: slough and devitalized tissue Severity: Fat Layer Exposed Amount of bleeding with debridement: Mild Bleeding Controlled with: Pressure Patient tolerated procedure: Patient tolerated procedure well Post-Debridement Measurements and Additional Note: Post-Debridement Measurements/Treatment - Nurse 1 - General Ulcer Assessment Start: 03/16/21 13:42 Freq: Status: Active Protocol: SOY Activity Type Activity Date Activity User E-Sign Co-Sign Detail Recorded Client Recorded Date Recorded By Document 03/16/21 13:42 MARION [id number] 03/16/21 13:43 MARION 03/16/21 13:42 - Today's Visit Information Type of service Follow-up Visit (Physician/MEDICAL LAB TECHNOLOGIST ) Arrival Mode Ambulatory Patient Identification Verified (Name & Yes ) Height and Weight Body Mass Index (BMI) 44.4 BMI Classification Obese Vital Signs Temperature (97.8 F-99.1 F) 97.4 F L Temperature Source Temporal Pulse Rate (60-100) 81 Pulse Location Monitor Blood Pressure (90/60-120/80) 138/75 H Blood Pressure Mean (mm Hg) 96 Source Monitor Position Semi-Fowlers Blood Pressure Location Right Arm History Since Last Visit- (Skip if this is Patient's initial visit) Have you changed medications since your No last visit? Any new allergies or adverse reactions No Had a fall/change in ADL's that may No increase risk of falls Signs or symptoms of abuse and/or No neglect since last visit Have you been in the hospital since your No last visit? Has dressing in place as prescribed Yes Has compression in place as prescribed N/A Has offloadiing in place as prescribed N/A Experienced any changes in pain level or No management Left Footwear Regular Shoe Right Footwear Regular Shoe Pain Scale: 0-10 Numeric Is Patient Pain Free? Yes WC - Nurse 1 - General Ulcer Measurement Start: 03/16/21 13:42 Freq: Status: Active Protocol: Activity Type Activity Date Activity User E-Sign Co-Sign Detail Recorded Client Recorded Date Recorded By Document 03/16/21 13:42 KR [id number] 03/16/21 13:43 KR 03/16/21 13:42 Wound Center Nurse 1 #3 Right lower lateral leg -Current Size (cm) - Length 0.9 -Current Size (cm) - Width 0.9 -Current Size (cm) - Depth 0.2 -Total Square Cm 0.81 -Exudate Amt Small -Exudate Type Serosanguineous -Wound Margin Distinct, Outline Attached -Granulation Amt Medium (34-66%) -Granulation Quality Red -Necrosis Amt Small (1-33%) -Necrotic Tissue Type Adherent Slough -Texture (Mandy-wound Skin Appearance) Assessed, Scarring -Moisture (Mandy-wound Skin Appearance) No Abnormality, Assessed -Color (Mandy-wound Skin Appearance) No Abnormality, Assessed -Temperature (Mandy-wound Skin No Abnormality Appearance) (Pt Warm) -Tenderness on Palpation (Mandy-wound No Skin Appearance) -Ulcer Cleansing Rinsed/ Irrigated with Saline -Foul Odor after Cleansing No -Anesthetic Used 5% Lidocaine Gel WC - Nurse 2 - General Ulcer CM Notes Start: 03/16/21 13:42 Freq: Status: Active Protocol: Activity Type Activity Date Activity User E-Sign Co-Sign Detail Recorded Client Recorded Date Recorded By Document 03/16/21 14:14 MW [id number] 03/16/21 14:15 MW 03/16/21 14:14 Wound Center Nurse 2 -Time 14:14 -Correct Patient Yes -Correct Side, Site, Position Yes -Correct Procedure Yes -Procedure Performed Yes -Type of Procedure Debridement -Clinical Debridement Subcutaneous -Tissue Removed Subcutaneous -Post Debridement (cm) - Length 1.0 -Post Debridement (cm) - Width 0.9 -Post Debridement (cm) - Depth 0.1 -Total Square (Post) (cm) 0.90 -Area of Debridement (cm) - Length 1.0 -Area of Debridement (cm) - Width 0.9 -Total Square (Area) (cm) 0.90 -Tunneling No -Undermining/Tunneling No -Circular Undermining No -Wound/Ulcer Outcome Not Healed -Ulcer Cleansing Rinsed/ Irrigated with Saline -Foul Odor after Cleansing No -Bioengineered Tissue No -Bleeding Controlled with Pressure -Offloading No -Treatment Response Procedure Tolerated Well -Debridement - Subq, 1st 20sq cm Yes Pain Scale: 0-10 Numeric Is Patient Pain Free? Yes WC - Nurse 3 - General Ulcer D/C NN Start: 03/16/21 13:42 Freq: Status: Active Protocol: Activity Type Activity Date Activity User E-Sign Co-Sign Detail Recorded Client Recorded Date Recorded By Document 03/16/21 14:55 KECIA [id number] 03/16/21 14:56 KECIA 03/16/21 14:55 Wound Care Nurse 3 #3 Right lower lateral leg -Ulcer Cleansing Rinsed/ Irrigated with Saline -Foul Odor after Cleansing No -Negative Pressure Wound Therapy N/A -Primary Dressing Applied Promogran -Promogran 1 Left -Lotion applied to leg before No compression wrap -Multi-Layered Wrap Application Unna Boot - Left ($) WC - Visit Discharge Discharge Condition Stable Ambulatory Status Ambulatory Transportation Private Auto Medication Reconcilliation completed & No provided to patient/care provider Clinical Summary of Care Provided Yes Assessment/Plan Assessment/Plan (1) Venous ulcer of right leg: CODE(S): I83.019 - Varicose veins of right lower extremity with ulcer of unspecified site; L97.919 - Non-pressure chronic ulcer of unspecified part of right lower leg with unspecified severity (2) Cellulitis of right lower extremity: CODE(S): L03.115 - Cellulitis of right lower limb (3) Venous insufficiency: CODE(S): I87.2 - Venous insufficiency (chronic) (peripheral) (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 At home wound-care instructions:Haleigh applied today with with an Unna boot over top, this will be changed out in 1 week. Compression: Bilateral compression stockings Off-loading: The patient was instructed to avoid pressure and friction on the affected areas. Reposition every 2 hours at minimum. Avoid prolonged standing and/or dangling of legs. When seated, feet should be elevated at chest level. Frequent ambulation is encouraged. Diet: Patient encouraged to increase protein intake while taking caution to avoid high carbohydrate and/or sugar intake. Patient is a non-smoker Labs/cultures/imaging: Cultures ordered and collected prior and showed MRSA, patient completed her doxycycline well. Routine baseline lab work will be requested from prior hospitalization. Vascular studies requested from [place] and showed no evidence of arterial occlusive disease. Follow-up: Return to clinic in 2 week for re-evaluation. Return sooner or report to the emergency room should symptoms worsen, or new symptoms arise. Discussed with patient in detail that she should notify our office if she develops signs of worsening cellulitis. This note was generated with [employer] dictation software. It may contain incorrect words, spelling, and punctuation that were not noted in checking the note before signing.
[2021-03-30 13:15] VITALS: BP 143/75; PULSE 75; RESP 16; TEMP 36.1; BMI 44.4
--- NOTE | 2021-03-30 16:33 | PN.PCM_ITS ---
History of Present Illness Date of Service: 03/30/21 Chief Complaint: Venous leg ulcer right lower extremity with cellulitis History of Wound: This is a 65-year-old female who presents to the wound healing center today with complaint of a nonhealing venous leg ulcer on her right lower extremity with also cellulitis. She has a past medical history significant for seizure disorder, and venous insufficiency. The patient states that her issues initially began in September 2020 where she developed cellulitis to her right lower extremity. Shortly afterwards she developed an open wound and was admitted twice to [facility] and was in the emergency department multiple times and placed on multiple rounds of antibiotics including doxycycline, Bactrim, clindamycin, Rocephin, and most recently completed a course of Keflex after being discharged from her 5-day hospital stay from 11/24 through 11/29. Unfortunately, hospital records are not available for review at this time. She does state that she had venous and arterial studies done and states that her arterial studies were within normal limits. I have personally reviewed and arterial studies done from 03/06/2019 which showed no arterial occlusive disease. However prior venous study showed venous insufficiency. She has currently been utilizing Neosporin over the open wound and covering with gauze. She states that the redness from the cellulitis to the right lower extremity has improved somewhat on the Keflex. Denies any other acute concerns. Past medical, family, and social history reviewed and not pertinent to the current visit and all other systems reviewed and negative with exception of those listed above. Progress of Wound: 03/16/2021?patient's wound has improved in size and she tolerated the Unna boot well, no new concerns 03/30/2021?patient's wound has improved in size and she tolerated the Unna boot well, no new concerns Objective Data Objective Data Vital Signs: Vital Signs Temp Pulse Resp BP 96.9 F L 75 16 143/75 H 03/30/21 13:15 03/30/21 13:15 03/30/21 13:15 03/30/21 13:15 Body Mass Index (BMI) 44.4 Charges/Coding Procedures Integumentary 111xxx-113xx: 31703 Carlene subq tissue 20 sq cm/< Physical Exam Const alert, no apparent distress and healthy appearing General Appearance: cooperative HEENT normocephalic Resp normal respiratory effort Effort and Inspection: able to speak in complete sentences Cardio Peripheral Pulses: dorsalis pedis pulses present right 2+ Extremity full ROM General Extremity: normal exam except as noted Skin Wounds: wounds noted Wound Narrative: venous leg ulcer to right lower extremity on the lower lateral side with small amount of adherent slough. No rash present today. Trace periulcer erythema. No warmth or tenderness of RLE. 1+ pitting edema of RLE. No purulent/malodorous drainage. Bilaterally she does have chronic venous changes present with hemosiderin staining. Neuro oriented x3 and moves all extremities Sensorium / Orientation: awake, alert, oriented to person, oriented to place and oriented to time Psych mental status grossly normal Appearance: grossly normal Attitude: calm Debridement Note Debridement Note Wound debrided: Right VLU Laterality: Right Type of Debridement: Excisional debridement Anesthesia Used: 5% Lidocaine Gel Depth: Down to and including healthy tissue and in the subcutaneous layer Percentage of wound debrided: 100 Instrument Used: 3mm curette Tissue Removed: Slough and devitalized tissue Severity: Fat Layer Exposed Amount of bleeding with debridement: Mild Bleeding Controlled with: Pressure Patient tolerated procedure: Patient tolerated procedure well Post-Debridement Measurements and Additional Note: Post-Debridement Measurements/Treatment - Nurse 1 - General Ulcer Assessment Start: 03/16/21 13:42 Freq: Status: Active Protocol: SOY Activity Type Activity Date Activity User E-Sign Co-Sign Detail Recorded Client Recorded Date Recorded By Document 03/16/21 13:42 KR [id number] 03/16/21 13:43 KR Document 03/30/21 13:15 ML [id number] 03/30/21 13:23 ML 03/16/21 03/30/21 13:42 13:15 - Today's Visit Information Type of service Follow-up Visit Follow-up Visit (Physician/METAL INSPECTOR (Physician/METAL INSPECTOR ) ) Arrival Mode Ambulatory Ambulatory Transfer Assistance None Patient Identification Verified (Name & Yes Yes ) Patient Requires Transmission-Based No Precautions Safety Precautions NA Height and Weight Body Mass Index (BMI) 44.4 44.4 BMI Classification Obese Obese Vital Signs Temperature (97.8 F-99.1 F) 97.4 F L 96.9 F L Temperature Source Temporal Temporal Pulse Rate (60-100) 81 75 Pulse Location Monitor Monitor Respiratory Rate (12-18) 16 Respiratory rate source Observation Blood Pressure (90/60-120/80) 138/75 H 143/75 H Blood Pressure Mean (mm Hg) 96 97 Source Monitor Monitor Position Semi-Fowlers Sitting Blood Pressure Location Right Arm Right Arm History Since Last Visit- (Skip if this is Patient's initial visit) Have you changed medications since your No No last visit? Any new allergies or adverse reactions No No Had a fall/change in ADL's that may No No increase risk of falls Signs or symptoms of abuse and/or No No neglect since last visit Have you been in the hospital since your No Yes last visit? Has dressing in place as prescribed Yes Yes Has compression in place as prescribed N/A N/A Has offloadiing in place as prescribed N/A N/A Experienced any changes in pain level or No No management Left Footwear Regular Shoe Regular Shoe Right Footwear Regular Shoe Regular Shoe Pain Scale: 0-10 Numeric Is Patient Pain Free? Yes Yes WC - Nurse 1 - General Ulcer Measurement Start: 03/16/21 13:42 Freq: Status: Active Protocol: Activity Type Activity Date Activity User E-Sign Co-Sign Detail Recorded Client Recorded Date Recorded By Document 03/16/21 13:42 KR [id number] 03/16/21 13:43 KR Document 03/30/21 13:15 ML [id number] 03/30/21 13:23 ML 03/16/21 03/30/21 13:42 13:15 Wound Center Nurse 1 #3 Right lower lateral leg -Current Size (cm) - Length 0.9 0.6 -Current Size (cm) - Width 0.9 0.6 -Current Size (cm) - Depth 0.2 0.1 -Total Square Cm 0.81 0.36 -Exudate Amt Small Small -Exudate Type Serosanguineous Serosanguineous -Wound Margin Distinct, Distinct, Outline Outline Attached Attached -Granulation Amt Medium (34-66%) Small (1-33%) -Granulation Quality Red -Slough/Fibrin Yes -Necrosis Amt Small (1-33%) Small (1-33%) -Necrotic Tissue Type Adherent Slough -Texture (Mandy-wound Skin Appearance) Assessed, Assessed Scarring -Moisture (Mandy-wound Skin Appearance) No Abnormality, Assessed Assessed -Color (Mandy-wound Skin Appearance) No Abnormality, Assessed Assessed -Temperature (Mandy-wound Skin No Abnormality No Abnormality Appearance) (Pt Warm) (Pt Warm) -Tenderness on Palpation (Mandy-wound No No Skin Appearance) -Ulcer Cleansing Rinsed/ Rinsed/ Irrigated with Irrigated with Saline Saline -Foul Odor after Cleansing No No -Anesthetic Used 5% Lidocaine 5% Lidocaine Gel Gel WC - Nurse 2 - General Ulcer CM Notes Start: 03/16/21 13:42 Freq: Status: Active Protocol: Activity Type Activity Date Activity User E-Sign Co-Sign Detail Recorded Client Recorded Date Recorded By Document 03/16/21 14:14 MW [id number] 03/16/21 14:15 MW Document 03/30/21 13:42 MW [id number] 03/30/21 13:44 MW 03/16/21 03/30/21 14:14 13:42 Wound Center Nurse 2 #3 Right lower lateral leg -Time 14:14 13:43 -Correct Patient Yes Yes -Correct Side, Site, Position Yes Yes -Correct Procedure Yes Yes -Procedure Performed Yes Yes -Type of Procedure Debridement Debridement -Clinical Debridement Subcutaneous Subcutaneous -Tissue Removed Subcutaneous Subcutaneous -Post Debridement (cm) - Length 1.0 0.7 -Post Debridement (cm) - Width 0.9 0.6 -Post Debridement (cm) - Depth 0.1 0.1 -Total Square (Post) (cm) 0.90 0.42 -Area of Debridement (cm) - Length 1.0 0.7 -Area of Debridement (cm) - Width 0.9 0.6 -Total Square (Area) (cm) 0.90 0.42 -Tunneling No No -Undermining/Tunneling No No -Circular Undermining No No -Wound/Ulcer Outcome Not Healed Not Healed -Ulcer Cleansing Rinsed/ Rinsed/ Irrigated with Irrigated with Saline Saline -Foul Odor after Cleansing No No -Bioengineered Tissue No No -Bleeding Controlled with Pressure Pressure -Offloading No No -Treatment Response Procedure Procedure Tolerated Well Tolerated Well -Debridement - Subq, 1st 20sq cm Yes Yes Pain Scale: 0-10 Numeric Is Patient Pain Free? Yes Yes WC - Nurse 3 - General Ulcer D/C NN Start: 03/16/21 13:42 Freq: Status: Active Protocol: Activity Type Activity Date Activity User E-Sign Co-Sign Detail Recorded Client Recorded Date Recorded By Document 03/16/21 14:55 AK [id number] 03/16/21 14:56 AK Document 03/30/21 14:00 MW [id number] 03/30/21 14:01 MW 03/16/21 03/30/21 14:55 14:00 Wound Care Nurse 3 #3 Right lower lateral leg -Ulcer Cleansing Rinsed/ Rinsed/ Irrigated with Irrigated with Saline Saline -Foul Odor after Cleansing No No -Negative Pressure Wound Therapy N/A N/A -Primary Dressing Applied Promogran NonAdherent Contact Layer -Other Dressing promogran -Primary Dressing Covered/Secured with Dry Gauze & Roll Gauze, Secured with Tape -Promogran 1 Left -Lotion applied to leg before No No compression wrap -Multi-Layered Wrap Application Unna Boot - Left ($) -Stockings Yes Treatment Response Procedure Tolerated Well Pain Scale: 0-10 Numeric Is Patient Pain Free? Yes Teaching: Wound Center Dressing Your Wound -Person Taught Patient -Teaching Method Discussion -Response to teaching Verbalize understanding WC - Visit Discharge Discharge Condition Stable Stable Ambulatory Status Ambulatory Ambulatory Transportation Private Auto Private Auto Accompanied by self Medication Reconcilliation completed & No No provided to patient/care provider Clinical Summary of Care Provided Yes Yes Assessment/Plan Assessment/Plan (1) Venous ulcer of right leg: CODE(S): I83.019 - Varicose veins of right lower extremity with ulcer of unspecified site; L97.919 - Non-pressure chronic ulcer of unspecified part of right lower leg with unspecified severity (2) Cellulitis of right lower extremity: CODE(S): L03.115 - Cellulitis of right lower limb (3) Venous insufficiency: CODE(S): I87.2 - Venous insufficiency (chronic) (peripheral) (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 At home wound-care instructions:Haleigh applied daily cover with gauze Compression: Bilateral compression stockings Off-loading: The patient was instructed to avoid pressure and friction on the affected areas. Reposition every 2 hours at minimum. Avoid prolonged standing and/or dangling of legs. When seated, feet should be elevated at chest level. Frequent ambulation is encouraged. Diet: Patient encouraged to increase protein intake while taking caution to avoid high carbohydrate and/or sugar intake. Patient is a non-smoker Labs/cultures/imaging: Cultures ordered and collected prior and showed MRSA, patient completed her doxycycline well. Routine baseline lab work will be requested from prior hospitalization. Vascular studies requested from [place] and showed no evidence of arterial occlusive disease. Follow-up: Return to clinic in 2 week for re-evaluation. Return sooner or report to the emergency room should symptoms worsen, or new symptoms arise. Discussed with patient in detail that she should notify our office if she develops signs of worsening cellulitis. This note was generated with [employer] dictation software. It may contain incorrect words, spelling, and punctuation that were not noted in checking the note before signing.
== END 2021-04-02 23:59 ==
LOC: WC 13:30
PROVIDERS: Visit Provider Nurse Practitioner Family
DX: I83.019 Varicose veins of right lower extremity with ulcer of unspecified site (principal); L97.912 Non-pressure chronic ulcer of unspecified part of right lower leg with fat layer exposed; I87.2 Venous insufficiency (chronic) (peripheral); L03.115 Cellulitis of right lower limb; G40.909 Epilepsy, unspecified, not intractable, without status epilepticus; E06.3 Autoimmune thyroiditis; E66.9 Obesity, unspecified; Z68.41 Body mass index [BMI] 40.0-44.9, adult; Z79.890 Hormone replacement therapy; Z79.899 Other long term (current) drug therapy
CPT/HCPCS: 11042; 29580

== ENCOUNTER 2021-04-13 13:15 | Outpatient (RCR) | payer SELFPAY ==
[2021-04-03 00:11] VITALS: BP 143/75; PULSE 75; RESP 16; TEMP 36.1; BMI 44.4
[2021-04-13 13:03] VITALS: BP 153/86; PULSE 79; RESP 16; TEMP 36.1; BMI 44.4
--- NOTE | 2021-04-13 16:35 | PN.PCM_ITS ---
History of Present Illness Date of Service: 04/13/21 Chief Complaint: Venous leg ulcer right lower extremity with cellulitis History of Wound: This is a 65-year-old female who presents to the wound healing center today with complaint of a nonhealing venous leg ulcer on her right lower extremity with also cellulitis. She has a past medical history significant for seizure disorder, and venous insufficiency. The patient states that her issues initially began in September 2020 where she developed cellulitis to her right lower extremity. Shortly afterwards she developed an open wound and was admitted twice to [facility] and was in the emergency department multiple times and placed on multiple rounds of antibiotics including doxycycline, Bactrim, clindamycin, Rocephin, and most recently completed a course of Keflex after being discharged from her 5-day hospital stay from 11/24 through 11/29. Unfortunately, hospital records are not available for review at this time. She does state that she had venous and arterial studies done and states that her arterial studies were within normal limits. I have personally reviewed and arterial studies done from 03/06/2019 which showed no arterial occlusive disease. However prior venous study showed venous insufficiency. She has currently been utilizing Neosporin over the open wound and covering with gauze. She states that the redness from the cellulitis to the right lower extremity has improved somewhat on the Keflex. Denies any other acute concerns. Past medical, family, and social history reviewed and not pertinent to the current visit and all other systems reviewed and negative with exception of those listed above. Progress of Wound: 04/13/2021?patient's wound size is very small today and is improved from her previous evaluation, declines debridement and would like to be discharged from the wound healing center today. Denies any signs of infection at this time. Objective Data Objective Data Vital Signs: Vital Signs Temp Pulse Resp BP 96.9 F L 79 16 153/86 H 04/13/21 13:03 04/13/21 13:03 04/13/21 13:03 04/13/21 13:03 Body Mass Index (BMI) 44.4 Charges/Coding Visit Charges Office Visits / Consults: 73716 OV L2 Est Physical Exam Const alert, no apparent distress and healthy appearing General Appearance: cooperative HEENT normocephalic Resp normal respiratory effort Effort and Inspection: able to speak in complete sentences Cardio Peripheral Pulses: dorsalis pedis pulses present right 2+ Extremity full ROM General Extremity: normal exam except as noted Skin Wounds: wounds noted Wound Narrative: venous leg ulcer to right lower extremity on the lower lateral side, wound is very small without any slough. No rash present today. Trace periulcer erythema. No warmth or tenderness of RLE. 1+ pitting edema of RLE. No purulent/malodorous drainage. Bilaterally she does have chronic venous changes present with hemosiderin staining. Neuro oriented x3 and moves all extremities Sensorium / Orientation: awake, alert, oriented to person, oriented to place and oriented to time Psych mental status grossly normal Appearance: grossly normal Attitude: calm Assessment/Plan Assessment/Plan (1) Venous ulcer of right leg: CODE(S): I83.019 - Varicose veins of right lower extremity with ulcer of unspecified site; L97.919 - Non-pressure chronic ulcer of unspecified part of right lower leg with unspecified severity (2) Cellulitis of right lower extremity: CODE(S): L03.115 - Cellulitis of right lower limb (3) Venous insufficiency: CODE(S): I87.2 - Venous insufficiency (chronic) (peripheral) (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 At home wound-care instructions:Haleigh applied daily cover with gauze x1 week and then Adaptic cover with gauze x1 week. Compression: Bilateral compression stockings Off-loading: The patient was instructed to avoid pressure and friction on the af fected areas. Reposition every 2 hours at minimum. Avoid prolonged standing and/or dangling of legs. When seated, feet should be elevated at chest level. Frequent ambulation is encouraged. Diet: Patient encouraged to increase protein intake while taking caution to avoid high carbohydrate and/or sugar intake. Patient is a non-smoker Follow-up: The patient's wound size is very minimal today and she wishes to be discharged from the wound healing center. Return sooner or report to the emergency room should symptoms worsen, or new symptoms arise. Discussed with patient in detail that she should notify our office if she develops signs of worsening cellulitis. This note was generated with [employer] software. It may contain incorrect words, spelling, and punctuation that were not noted in checking the note before signing.
== END 2021-04-13 14:01 | disposition home or self-care (01) ==
LOC: WC 13:15
PROVIDERS: Visit Provider Nurse Practitioner Family
DX: I83.018 Varicose veins of right lower extremity with ulcer other part of lower leg (principal); L97.819 Non-pressure chronic ulcer of other part of right lower leg with unspecified severity; L03.115 Cellulitis of right lower limb; E06.3 Autoimmune thyroiditis; G40.909 Epilepsy, unspecified, not intractable, without status epilepticus; Z79.890 Hormone replacement therapy; Z79.899 Other long term (current) drug therapy
CPT/HCPCS: 99212; G0463